=== PATIENT | female | born 1995 | race Caucasian/White ===

== ENCOUNTER 2016-12-08 23:03 | Emergency (ER) | payer OTHER ==
[2016-12-08 23:09] VITALS: BP 128/71; PULSE 78; TEMP 98.3; BMI 34.4
[2016-12-08 23:57] LABS: URINE APPEARANCE SLCLOUDY; URINE BILIRUBIN NEGATIVE (NEGATIVE); URINE BLOOD NEGATIVE (NEGATIVE); URINE COLOR LTYELLOW; URINE GLUCOSE (UA) NEGATIVE (NEGATIVE); URINE KETONE NEGATIVE (NEGATIVE); URINE LEUK ESTERASE NEGATIVE (NEGATIVE); URINE NITRITE NEGATIVE (NEGATIVE); URINE PROTEIN NEGATIVE (NEGATIVE); URINE UROBILINOGEN NEGATIVE mg/dL (0.2-1.0)
--- NOTE | 2016-12-09 00:04 | PDOC ---
History of Present Illness - General History Source: Patient, Old Records Exam Limitations: No Limitations - History of Present Illness Initial Comments: 12/09/16 00:23 Patient is a 21 year old female with no significant past medical history who presents with intermittent epigastric and abdominal pain for 2 weeks burning in sensation. 7/10 right now but previously a 10/10, occasionally radiating to the back. She does not report any modifying factors. She notes that her pain is association with food and accompanied by nausea but no vomiting, diarrhea, melena, hematochezia, or anorexia. She denies dysuria, frequency, urgency, hematuria, fever, chills. <Stefano Ceja - Last Filed: 12/09/16 00:23> <Vinnie Correa - Last Filed: 12/09/16 01:32> - General Chief Complaint: Pain Stated Complaint: STOMACH PAIN Time Seen by Provider: 12/08/16 23:46 Past History <Stefano Ceja - Last Filed: 12/09/16 00:23> - Past Medical History Asthma: Yes - Psycho/Social/Smoking Cessation Hx Anxiety: No Suicidal Ideation: No Smoking Status: No Smoking History: Never smoked Number of Cigarettes Smoked Daily: 0 <Vinnie Correa - Last Filed: 12/09/16 01:32> - Past Medical History Allergies/Adverse Reactions: Allergies Allergy/AdvReac Type Severity Reaction Status Date / Time No Known Allergies Allergy Verified 12/08/16 23:09 Home Medications: Ambulatory Orders Lactobacillus Rhamnosus GG [Culturelle] 1 each PO DAILY #7 capsule 03/28/13 Review of Systems - Review of Systems Able to Perform ROS?: Yes Comments:: 12/09/16 00:23 CONSTITUTIONAL: No fever, no chills, no fatigue EYES: No visual changes ENT: No ear pain, no sore throat CARDIOVASCULAR: No chest pain, no palpitations RESPIRATORY: No cough, no SOB GI: (+) abdominal pain, no nausea, no vomiting, no constipation, no diarrhea GENITOURINARY: No dysuria, no frequency, no hematuria MUSCULOSKELETAL: No back pain, no joint pain, no myalgias SKIN: No rash NEURO: No headache <Stefano Ceja - Last Filed: 12/09/16 00:23> *Physical Exam - Vital Signs Last Vital Signs Temp Pulse Resp BP Pulse Ox 98.3 F 78 18 128/71 99 12/08/16 23:07 12/08/16 23:07 12/08/16 23:07 12/08/16 23:07 12/08/16 23:07 - Physical Exam Comments: 12/09/16 00:23 CONSTITUTIONAL: Well-appearing; well-nourished; in no apparent distress HEAD: Normocephalic; atraumatic EYES: PERRL; EOM intact ENMT: External appears normal; normal oropharynx NECK: Supple; non-tender; no cervical lymphadenopathy CARD: Normal S1, S2; no murmurs, rubs, or gallops RESP: Normal chest excursion with respiration; breath sounds clear and equal bilaterally; no wheezes, rhonchi, or rales ABD: (+) Soft, non-distended; Epigastric and left upper quadrant tenderness. no palpable organomegaly, no palpable hernias EXT: Normal ROM in all four extremities; non-tender to palpation; distal pulses intact SKIN: Warm, dry, no rash NEURO: No focal neurological deficiencies. <Stefano Ceja - Last Filed: 12/09/16 00:23> - Vital Signs Last Vital Signs Temp Pulse Resp BP Pulse Ox 98.3 F 78 18 128/71 99 12/08/16 23:07 12/08/16 23:07 12/08/16 23:07 12/08/16 23:07 12/08/16 23:07 <Vinnie Correa - Last Filed: 12/09/16 01:32> ED Treatment Course - ADDITIONAL ORDERS Additional order review: Laboratory Results 12/08/16 23:44 Urine Color Ltyellow Urine Appearance Slcloudy Urine pH 7.0 Urine Protein Negative Urine Glucose (UA) Negative Urine Ketones Negative Urine Blood Negative Urine Nitrite Negative Urine Bilirubin Negative Urine Urobilinogen Negative Ur Leukocyte Esterase Negative Urine HCG, Qual Negative <Stefano Ceja - Last Filed: 12/09/16 00:23> - ADDITIONAL ORDERS Additional order review: Laboratory Results 12/08/16 23:44 Urine HCG, Qual Negative <Vinnie Correa - Last Filed: 12/09/16 01:32> Medical Decision Making - Medical Decision Making 12/09/16 01:30 Patient is a well-appearing 21-year-old female with history of the obesity who presents to the ER with signs and symptoms of gastroesophageal reflux. Serial abdominal exams reveal minimal subxiphoid discomfort to deep palpation without guarding rebound. Patient has received by mouth Zantac and Maalox with resolution of her symptoms. She is able to tolerate by mouth. Will be discharged with H2 blockers and GI follow-up. <Vinnie Correa - Last Filed: 12/09/16 01:32> *DC/Admit/Observation/Transfer - Attestations Scribe Attestion: 12/09/16 00:23 Documentation prepared by Stefano Ceja, acting as medical billing service for Vinnie Correa MD. <Stefano Ceja - Last Filed: 12/09/16 00:23> - Attestations Physician Attestion: 12/09/16 01:29 The documentation was prepared by the scribe under my direct supervision. I have reviewed the documentation which correctly represents the findings, medical decision-making and critical action taken by me. <Vinnie Correa - Last Filed: 12/09/16 01:32> Diagnosis at time of Disposition: Epigastric pain Gastroesophageal reflux disease Qualifiers: Esophagitis presence: esophagitis presence not specified Qualified Code(s): K21.9 - Gastro-esophageal reflux disease without esophagitis - Discharge Dispostion Disposition: HOME Condition at time of disposition: Stable - Referrals Referrals: Liberty Harrell MD [Primary Care Provider] - Rahul Ley MD [Staff Physician] - - Patient Instructions Printed Discharge Instructions: DI for Abdominal Pain-Adult, DI for Gastroesophageal Reflux Disease (GERD) Additional Instructions: Please take Zantac-150 mg twice daily for the next 7-10 days. You can take Maalox (a Full) 6-8 hours as needed. Follow-up with GI. Return immediately for severe pain, persistent vomiting.
[2016-12-09] MEDS ORDERED: RANITIDINE HCL 150 MG TABLET (FP) PO ONE (00:15)
[2016-12-09] MEDS ORDERED: MAG HYDROX/AL HYDROX/SIMETH 30 ML UNIT-DOSE CUP PO ONE (00:15)
[2016-12-09] MEDS ORDERED: RANITIDINE HCL 150 MG TABLET (FP) ONE ×2 (00:21→00:23)
[2016-12-09] MEDS ORDERED: MAG HYDROX/AL HYDROX/SIMETH 30 ML UNIT-DOSE CUP ONE (00:22)
[2016-12-09] MEDS ORDERED: traMADol HCL 50 MG TABLET PO ONE (00:37)
== END 2016-12-09 01:50 | disposition home or self-care (01) ==
LOC: JER 23:03
DX: K21.9 Gastro-esophageal reflux disease without esophagitis (principal)
CPT/HCPCS: 81003; 84703; 99282-25

== ENCOUNTER 2017-08-04 19:20 | Emergency (ER) | payer OTHER ==
[2017-08-04 19:24] VITALS: BP 125/81; PULSE 75; TEMP 98.2; BMI 33.1
--- NOTE | 2017-08-04 20:28 | PDOC ---
History of Present Illness - General Chief Complaint: Back Pain Stated Complaint: BACK PAIN Time Seen by Provider: 08/04/17 20:26 - History of Present Illness Initial Comments: 08/04/17 21:03 Patient is 22-year-old female with no past medical history who presents to emergency department today with 3 weeks of low back pain. Patient states that she noticed it 3 weeks ago however the pain got worse 3 days ago. She states that no positional make her comfortable. She tried Tylenol and Motrin with minimal relief. Denies bladder or bowel incontinence, weakness, gait changes, saddle anesthesia, frequency, urgency, hematuria. Past History - Past Medical History Allergies/Adverse Reactions: Allergies Allergy/AdvReac Type Severity Reaction Status Date / Time No Known Allergies Allergy Verified 08/04/17 19:22 Home Medications: Ambulatory Orders NK [No Known Home Medication] 08/04/17 Asthma: Yes COPD: No - Suicide/Smoking/Psychosocial Hx Smoking Status: No Smoking History: Never smoked Number of Cigarettes Smoked Daily: 0 Review of Systems - Review of Systems Able to Perform ROS?: Yes Comments:: 08/04/17 20:28 CONSTITUTIONAL: Absent: fever, chills, diaphoresis, generalized weakness, malaise, loss of appetite HEENT: Absent: rhinorrhea, nasal congestion, throat pain, throat swelling, difficulty swallowing, mouth swelling, ear pain, eye pain, visual Changes GENITOURINARY: Absent: dysuria, frequency, urgency, hesitancy, hematuria, flank pain, genital pain MUSCULOSKELETAL: Present: back pain Absent: myalgia, arthralgia, joint swelling SKIN: Absent: rash, itching, pallor NEUROLOGIC: Absent: headache, focal weakness or paresthesias, dizziness, unsteady gait, seizure, mental status changes, bladder or bowel incontinence PSYCHIATRIC: Absent: anxiety, depression, suicidal or homicidal ideation, hallucinations. Is the patient limited Montenegrin proficient: No *Physical Exam - Vital Signs Last Vital Signs Temp Pulse Resp BP Pulse Ox 98.2 F 75 18 125/81 100 08/04/17 19:22 08/04/17 19:22 08/04/17 19:22 08/04/17 19:22 08/04/17 19:22 - Physical Exam Comments: 08/04/17 20:28 GENERAL: Well developed, well nourished. Awake and alert. No acute distress. HEENT: Normocephalic, atraumatic. PERRLA, EOMI. No conjunctival pallor. Sclera are non- icteric. Moist mucous membranes. Oropharynx is clear. NECK: Supple. Full ROM. No JVD. Carotid pulses 2+ and symmetric, without bruits. No thyromegaly. No lymphadenopathy. CARDIOVASCULAR: Regular rate and rhythm. No murmurs, rubs, or gallops. Distal pulses are 2+ and symmetric. PULMONARY: No evidence of respiratory distress. Lungs clear to auscultation bilaterally. No wheezing, rales or rhonchi. ABDOMINAL: Soft. Non-tender. Non-distended. No rebound or guarding. No organomegaly. Normoactive bowel sounds. MUSCULOSKELETAL TTP of left lower back at the level of L5. Normal range of motion at all joints. No bony deformities or tenderness. No CVA tenderness. EXTREMITIES: No cyanosis. No clubbing. No edema. No calf tenderness. SKIN: Warm and dry. Normal capillary refill. No rashes. No jaundice. NEUROLOGICAL: Alert, awake, appropriate. Cranial nerves 2-12 intact. No deficits to light touch and temperature in face, upper extremities and lower extremities. No motor deficits in the in face, upper extremities and lower extremities. Normoreflexic in the upper and lower extremities. Normal speech. Toes are down- going bilaterally. Gait is normal without ataxia. PSYCHIATRIC: Cooperative. Good eye contact. Appropriate mood and affect. ED Treatment Course - ADDITIONAL ORDERS Additional order review: Laboratory Results 08/04/17 20:00 Urine HCG, Qual Negative Medical Decision Making - Medical Decision Making 08/04/17 21:30 Patient is a 22-year-old female no past medical history who presents with 3 days of worsening back pain. There is a palpable knot on exam. Most likely a muscle spasm at this time. We'll treat with Toradol and Flexeril. Exam and history revealed no red flags. We'll discharge home at this time. Return precautions given. Patient understands all discharge instructions and all questions were answered. *DC/Admit/Observation/Transfer Diagnosis at time of Disposition: Low back pain Qualifiers: Chronicity: acute Back pain laterality: bilateral Sciatica presence: without sciatica Qualified Code(s): M54.5 - Low back pain - Discharge Dispostion Disposition: HOME Condition at time of disposition: Stable Admit: No - Referrals Referrals: Din,Liberty, MD [Primary Care Provider] - Charlette Alvarado DO [Staff Physician] - Sera Sanderson MD [Staff Physician] - - Patient Instructions Printed Discharge Instructions: DI for Low Back Pain Additional Instructions: You have low back pain due to a muscle spasm. Please take ibuprofen 800 mg 3 times a day not to exceed 3000 mg a day. You were also prescribed Flexeril. Take the medication before you go to bed. Do not drive after taking this medication as it may make you sleepy. You may use warm compresses on your back to help with her symptoms. Please follow-up with your primary care doctor. Return to the emergency department if you have worsening back pain, bladder or bowel incontinence, numbness and tingling in her legs, changes in the way you walk, or any new or worsening symptoms. - Post Discharge Activity Forms/Work/School Notes: Back to School
[2017-08-04] MEDS ORDERED: KETOROLAC TROMETHAMINE 60 MG/2 ML VIAL IM ONE (20:59)
[2017-08-04] MEDS ORDERED: CYCLOBENZAPRINE HCL 10 MG TABLET (FP) PO ONE (20:59)
[2017-08-04] MEDS ORDERED: CYCLOBENZAPRINE HCL 10 MG TABLET (FP) ONE (21:04)
[2017-08-04] MEDS ORDERED: KETOROLAC TROMETHAMINE 60 MG/2 ML VIAL ONE (21:04)
== END 2017-08-04 21:09 | disposition home or self-care (01) ==
LOC: JERFT 19:20
PROC: 3E0233Z Introduction of Anti-inflammatory into Muscle, Percutaneous Approach (ICD-10-PCS; principal; 2017-08-04)
DX: M54.5 Low back pain (principal)
CPT/HCPCS: 84703; 99281-25

== ENCOUNTER 2017-12-31 19:59 | Emergency (ER) | payer OTHER ==
[2017-12-31 20:11] VITALS: BP 133/76; PULSE 90; TEMP 98.7; BMI 32.9
--- NOTE | 2017-12-31 20:30 | PDOC ---
History of Present Illness - General Chief Complaint: Pain Stated Complaint: ABD PAIN Time Seen by Provider: 12/31/17 20:30 History Source: Patient Exam Limitations: No Limitations Past History - Past Medical History Allergies/Adverse Reactions: Allergies Allergy/AdvReac Type Severity Reaction Status Date / Time No Known Allergies Allergy Verified 08/04/17 19:22 Home Medications: Ambulatory Orders NK [No Known Home Medication] 08/04/17 Asthma: Yes COPD: No - Suicide/Smoking/Psychosocial Hx Smoking Status: No Smoking History: Never smoked Number of Cigarettes Smoked Daily: 0 *Physical Exam - Vital Signs Last Vital Signs Temp Pulse Resp BP Pulse Ox 98.7 F 90 20 133/76 99 12/31/17 20:08 12/31/17 20:08 12/31/17 20:08 12/31/17 20:08 12/31/17 20:08 ED Treatment Course - LABORATORY CBC & Chemistry Diagram: 12/31/17 20:54 12/31/17 20:54 *DC/Admit/Observation/Transfer Diagnosis at time of Disposition: Abdominal pain Qualifiers: Abdominal location: unspecified location Qualified Code(s): R10.9 - Unspecified abdominal pain - Discharge Dispostion Disposition: HOME Decision to Admit order: No - Referrals - Patient Instructions Printed Discharge Instructions: DI for Abdominal Pain-Adult Additional Instructions: You have been diagnosed with abdominal pain. Please follow up with your primary medical doctor, Dr. Harrell within 1 day after discharge from the emergency department. If you pain worsens, persists, or you develop new concerning symptoms, please return to the emergency department immediately. - Post Discharge Activity
--- NOTE | 2017-12-31 20:35 | PDOC ---
Attending Attestation - HPI HPI: 12/31/17 21:44 The patient is a 22 year old female, with a significant PMH of asthma, migraines , gastritis, who presents to the emergency department with 2 days of right upper quadrant pain. The patient states the right upper quadrant pain has been progressively worsening over the past 3 hours prior to arrival. The patient states the RUQ pain is rated 10/10, radiates to the groin, worse with bowel movements, with no alleviating factors. The patient also states she has had 2 episodes of emesis within the past few hours with streaks of blood noted. The patient states she has taken Tylenol for the RUQ pain with minimal relief. The patient denies chest pain, shortness of breath, headache and dizziness. Denies fever, chills, diarrhea and constipation. Denies dysuria, frequency, urgency and hematuria. Allergies: NKA - Physicial Exam PE: 12/31/17 22:34 GENERAL: Awake, alert, and fully oriented, in no acute distress HEAD: No signs of trauma EYES: PERRLA, EOMI, sclera anicteric, conjunctiva clear ENT: Auricles normal inspection, hearing grossly normal, nares patent, oropharynx clear without exudates. Moist mucosa NECK: Normal ROM, supple, no lymphadenopathy, JVD, or masses LUNGS: Breath sounds equal, clear to auscultation bilaterally. No wheezes, and no crackles HEART: Regular rate and rhythm, normal S1 and S2, no murmurs, rubs or gallops ABDOMEN: (+) Right upper quadrant tenderness. No guarding, no rebound. Soft, normoactive bowel sounds. No masses EXTREMITIES: Normal range of motion, no edema. No clubbing or cyanosis. No cords, erythema, or tenderness NEUROLOGICAL: Cranial nerves II through XII grossly intact. Normal speech, normal gait SKIN: Warm, Dry, normal turgor, no rashes or lesions noted. <Christiano Jenkins - Last Filed: 12/31/17 22:34> - Resident Resident Name: Stevie Feliciano - ED Attending Attestation I have performed the following: I have examined & evaluated the patient, The case was reviewed & discussed with the resident, I agree w/resident's findings & plan - Medical Decision Making 12/31/17 21:52 Labs are normal. Pt will be treated with maalox; IVF and antiemetics were given 01/01/18 00:31 Labs normal, exam normal. Pt is gassy. Home with improved diet. <Hoa Betancourt - Last Filed: 01/01/18 00:32> Attestations - Attestations 12/31/17 21:45 Documentation prepared by Christiano Jenkins, acting as chief medical officer for Hoa Betancourt MD. <Christiano Jenkins - Last Filed: 12/31/17 22:34>
[2017-12-31] MEDS ORDERED: ACETAMINOPHEN 1000 MG/100 ML VIAL (NON FORMULARY) IVPB ONE (20:47)
[2017-12-31] MEDS ORDERED: ONDANSETRON 4 MG/2 ML VIAL IVPUSH ONE (20:47)
[2017-12-31] MEDS ORDERED: SODIUM CHLORIDE 1,000 ML IV STA (20:48)
[2017-12-31 21:05] LABS: BASO % 0.7 % (0-2.0); EOS % 2.6 % (0-4.5); HEMATOCRIT 36.2 % (32.4-45.2); LYMPH % 22.8 % (8-40); MCH 26.9 pg (25.7-33.7); MCHC 33.2 g/dl (32.0-36.0); MONO % 8.7 % (3.8-10.2); NEUT % 65.2 % (42.8-82.8); PLATELET COUNT 292 K/MM3 (134-434); RBC 4.46 M/mm3 (3.60-5.2); RDW 14.7 % (11.6-15.6); WHITE BLOOD COUNT 7.3 K/mm3 (4.0-10.0)
[2017-12-31] MEDS ORDERED: ONDANSETRON 4 MG/2 ML VIAL ONE (21:08)
[2017-12-31 21:37] LABS: ALK PHOS 73 U/L (45-117); ANION GAP 9 (8-16); BILIRUBIN,TOTAL 0.3 mg/dL (0.2-1.0); BLOOD UREA NITROGEN 10 mg/dL (7-18); CALCIUM 9.3 mg/dL (8.5-10.1); CHLORIDE 106 mmol/L (98-107); CO2 27 mmol/L (21-32); CREATININE 0.6 mg/dL (0.55-1.02); GLUCOSE,RANDOM 76 mg/dL (74-106); LIPASE 133 U/L (73-393); POTASSIUM 4.2 mmol/L (3.5-5.1); SGOT/AST 12 U/L (15-37); SGPT/ALT 26 U/L (12-78); SODIUM 142 mmol/L (136-145); TOT PROT 7.9 g/dl (6.4-8.2)
[2017-12-31 21:41] LABS: URINE APPEARANCE SLCLOUDY; URINE BILIRUBIN NEGATIVE (<2.0 mg/dL); URINE COLOR LTYELLOW; URINE GLUCOSE (UA) NEGATIVE (NEGATIVE); URINE KETONE NEGATIVE (NEGATIVE); URINE LEUK ESTERASE NEGATIVE (NEGATIVE); URINE NITRITE NEGATIVE (NEGATIVE); URINE PROTEIN NEGATIVE (NEGATIVE); URINE UROBILINOGEN NEGATIVE mg/dL (0.2-1.0)
[2017-12-31 21:43] LABS: HCG,QUALITATIVE URINE Negative
[2017-12-31] MEDS ORDERED: MAG HYDROX/AL HYDROX/SIMETH 30 ML UNIT-DOSE CUP PO ONE (21:49)
[2017-12-31] MEDS ORDERED: MAG HYDROX/AL HYDROX/SIMETH 30 ML UNIT-DOSE CUP ONE (21:54)
== END 2017-12-31 22:02 | disposition home or self-care (01) ==
LOC: JER 19:59
PROC: 3E033NZ Introduction of Analgesics, Hypnotics, Sedatives into Peripheral Vein, Percutaneous Approach (ICD-10-PCS; principal; 2017-12-31)
PROC: 3E033GC Introduction of Other Therapeutic Substance into Peripheral Vein, Percutaneous Approach (ICD-10-PCS; 2017-12-31)
PROC: 3E0337Z Introduction of Electrolytic and Water Balance Substance into Peripheral Vein, Percutaneous Approach (ICD-10-PCS; 2017-12-31)
DX: R10.9 Unspecified abdominal pain (principal)
CPT/HCPCS: 36415; 80053; 81003; 83690; 84703; 85025; 87086; 99283-25; J0131; J7030

== ENCOUNTER 2018-02-28 22:58 | Emergency (ER) | payer OTHER ==
[2018-02-28 23:08] VITALS: BP 119/77; PULSE 87; TEMP 99; BMI 34.2
--- NOTE | 2018-03-01 00:06 | PDOC ---
History of Present Illness - General Chief Complaint: Pain Stated Complaint: Migraine Headache Time Seen by Provider: 03/01/18 00:06 History Source: Patient - History of Present Illness Initial Comments: 03/01/18 01:39 22-year-old female with history of migraines complains of right-sided headache for 3 days with photophobia and phonophobia. Denies weakness, nausea, vomiting, diarrhea, abdominal pain, urinary symptoms, weakness. Patient has a history of migraines currently not on meds. Past History - Past Medical History Allergies/Adverse Reactions: Allergies Allergy/AdvReac Type Severity Reaction Status Date / Time No Known Allergies Allergy Verified 02/28/18 23:05 Home Medications: Ambulatory Orders Acetaminophen/Caffeine/Butalb [Fioricet -] 1 tab PO Q6H PRN #14 tablet MDD 4 08/14 Asthma: Yes COPD: No - Reproductive History Therapeutic (s) & number: No - Immunization History Immunization Up to Date: Yes - Suicide/Smoking/Psychosocial Hx Smoking Status: No Smoking History: Never smoked Have you smoked in the past 12 months: No Number of Cigarettes Smoked Daily: 0 Information on smoking cessation initiated: No Hx Alcohol Use: No Drug/Substance Use Hx: No Substance Use Type: None Review of Systems - Review of Systems Able to Perform ROS?: Yes Is the patient limited Omani proficient: No Constitutional: No: Symptoms Reported, See HPI, Chills, Diaphoresis, Fever, Loss of Appetite, Malaise, Night Sweats, Weakness, Weight Stable, Unintentional Wgt. Loss, Unexplained wgt Loss, Other HEENTM: Yes: Other (photophobia, phonophobia) Neurological: Yes: Headache. No: Symptoms reported, See HPI, Numbness, Paresthesia, Pre-Existing Deficit, Seizure, Tingling, Tremors, Weakness, Unsteady Gait, Ataxia, Dizziness, Other *Physical Exam - Vital Signs Last Vital Signs Temp Pulse Resp BP Pulse Ox 99.0 F 87 18 119/77 98 02/28/18 23:06 02/28/18 23:06 02/28/18 23:06 02/28/18 23:06 02/28/18 23:06 - Physical Exam General Appearance: Yes: Appropriately Dressed HEENT: positive: Normal ENT Inspection Respiratory/Chest: positive: Lungs Clear, Normal Breath Sounds Cardiovascular: positive: Regular Rhythm, Regular Rate Gastrointestinal/Abdominal: positive: Normal Bowel Sounds, Soft Extremity: positive: Normal Capillary Refill, Normal Inspection, Normal Range of Motion Integumentary: positive: Normal Color, Dry, Warm Neurologic: positive: instructor pilot II-XII NML intact, Fully Oriented, Alert, Normal Mood/ Affect ED Treatment Course - LABORATORY CBC & Chemistry Diagram: 03/01/18 01:00 03/01/18 01:00 Medical Decision Making - Medical Decision Making A: migraine P: IVF reglan Benadryl 03/01/18 02:32 feeling better. will d/c home *DC/Admit/Observation/Transfer Diagnosis at time of Disposition: Migraine Qualifiers: Migraine type: with aura Status migrainosus presence: without status migrainosus Intractability: intractable Qualified Code(s): G43.119 - Migraine with aura, intractable, without status migrainosus - Discharge Dispostion Disposition: HOME Condition at time of disposition: Fair - Prescriptions Prescriptions: Acetaminophen/Caffeine/Butalb [Fioricet -] 1 tab PO Q6H PRN #14 tablet MDD 4 PRN Reason: Moderate Pain - Referrals Referrals: Liberty Harrell MD [Primary Care Provider] - 24 hours - Patient Instructions Printed Discharge Instructions: Migraine -- Adult Additional Instructions: drink plenty of fluids. take fiorecet every 6 hours as needed for headache. Additional Instructions: * Please call your personal physician to report your Emergency Department visit and to report your progress, if any. * If there is no improvement in symptoms in 2 days call your physician. * Return to the Emergency Department for any worsening symptoms. - Post Discharge Activity Forms/Work/School Notes: Back to Work
[2018-03-01] MEDS ORDERED: SODIUM CHLORIDE 1,000 ML IV STA (00:09)
[2018-03-01] MEDS ORDERED: METOCLOPRAMIDE HCL INJECTION 10 MG/2 ML VIAL IVPB ONE (00:21)
[2018-03-01] MEDS ORDERED: METOCLOPRAMIDE HCL INJECTION 10 MG/2 ML VIAL ONE (01:04)
[2018-03-01 01:22] LABS: BASO % 0.6 % (0-2.0); EOS % 0.9 % (0-4.5); HEMATOCRIT 39.7 % (32.4-45.2); HEMOGLOBIN 13.1 GM/dL (10.7-15.3); MCHC 32.9 g/dl (32.0-36.0); MEAN CELL VOLUME 81.9 fl (80-96); MEAN PLT VOLUME 9.7 fl (7.5-11.1); MONO % 7.3 % (3.8-10.2); NEUT % 60.2 % (42.8-82.8); PLATELET COUNT 298 K/MM3 (134-434); RBC 4.84 M/mm3 (3.60-5.2); RDW 16.1 % (11.6-15.6); WHITE BLOOD COUNT 8.1 K/mm3 (4.0-10.0)
[2018-03-01 01:24] LABS: URINE APPEARANCE CLEAR; URINE BILIRUBIN NEGATIVE (<2.0 mg/dL); URINE COLOR LTYELLOW; URINE GLUCOSE (UA) NEGATIVE (NEGATIVE); URINE KETONE NEGATIVE (NEGATIVE); URINE LEUK ESTERASE NEGATIVE (NEGATIVE); URINE NITRITE NEGATIVE (NEGATIVE); URINE PROTEIN NEGATIVE (NEGATIVE); URINE UROBILINOGEN NEGATIVE mg/dL (0.2-1.0)
[2018-03-01 01:40] LABS: ALBUMIN 4.2 g/dl (3.4-5.0); ALK PHOS 79 U/L (45-117); ANION GAP 5 MMOL/L (8-16); BILIRUBIN,TOTAL 0.2 mg/dL (0.2-1); BLOOD UREA NITROGEN 12 mg/dL (7-18); CALCIUM 9.5 mg/dL (8.5-10.1); CHLORIDE 105 mmol/L (98-107); CO2 29 mmol/L (21-32); GLUCOSE,RANDOM 81 mg/dL (74-106); POTASSIUM 4.8 mmol/L (3.5-5.1); SGOT/AST 15 U/L (15-37); SGPT/ALT 22 U/L (13-61); SODIUM 139 mmol/L (136-145); TOT PROT 8.7 g/dl (6.4-8.2)
[2018-03-01] MEDS ORDERED: KETOROLAC TROMETHAMINE 30 MG/1 ML VIAL IVPUSH ONE (01:43)
[2018-03-01] MEDS ORDERED: KETOROLAC TROMETHAMINE 30 MG/1 ML VIAL ONE (02:20)
== END 2018-03-01 03:00 | disposition home or self-care (01) ==
LOC: JER 22:58
PROC: 3E033GC Introduction of Other Therapeutic Substance into Peripheral Vein, Percutaneous Approach (ICD-10-PCS; principal; 2018-02-28)
PROC: 3E033GC Introduction of Other Therapeutic Substance into Peripheral Vein, Percutaneous Approach (ICD-10-PCS; 2018-02-28)
PROC: 3E0333Z Introduction of Anti-inflammatory into Peripheral Vein, Percutaneous Approach (ICD-10-PCS; 2018-02-28)
DX: G43.119 Migraine with aura, intractable, without status migrainosus (principal)
CPT/HCPCS: 36415; 80053; 81003; 84703; 85025; 96374; 96375; 99282-25; J7030

== ENCOUNTER 2018-09-14 13:00 | Emergency (ER) | payer OTHER ==
[2018-09-14 13:16] VITALS: BP 114/68; PULSE 79; TEMP 98.6; BMI 34.4
--- NOTE | 2018-09-14 13:23 | PDOC ---
History of Present Illness - General Chief Complaint: Back Pain Stated Complaint: LOWER BACK PAIN Time Seen by Provider: 09/14/18 13:17 History Source: Patient - History of Present Illness Initial Comments: 09/14/18 14:20 23 YEAR OLD FEMALE WITH LOWER BACK PAIN X 1 DAY. REPORTS TAKING IBUPROFEN yesterday with minimal pain relief. denies injury or trauma or lifting reported. no urinary symptoms. denies NVD, abdominal pain, no flank pain no pmhx Past History - Past Medical History Allergies/Adverse Reactions: Allergies Allergy/AdvReac Type Severity Reaction Status Date / Time No Known Allergies Allergy Verified 02/28/18 23:05 Home Medications: Ambulatory Orders Acetaminophen/Caffeine/Butalb [Fioricet -] 1 tab PO Q6H PRN #14 tablet MDD 4 08/14 Cyclobenzaprine HCl [Flexeril 10 mg] 10 mg PO TID PRN #14 tablet 09/14/18 Asthma: Yes COPD: No - Reproductive History Therapeutic (s) & number: No - Immunization History Immunization Up to Date: Yes - Suicide/Smoking/Psychosocial Hx Smoking Status: No Smoking History: Never smoked Have you smoked in the past 12 months: No Number of Cigarettes Smoked Daily: 0 Information on smoking cessation initiated: No Hx Alcohol Use: No Drug/Substance Use Hx: No Substance Use Type: None Review of Systems - Review of Systems Able to Perform ROS?: Yes Is the patient limited Syrian proficient: No Constitutional: No: Symptoms Reported, See HPI, Chills, Diaphoresis, Fever, Loss of Appetite, Malaise, Night Sweats, Weakness, Weight Stable, Unintentional Wgt. Loss, Unexplained wgt Loss, Other : No: Symptoms Reported, See HPI, Burning, Dysuria, Discharge, Frequency, Flank Pain, Hematuria, Incontinence, Pain, Urgency, Testicular Mass, Testicular Swelling, Lesions, Testicular Pain, Other Musculoskeletal: Yes: Back Pain. No: Symptoms Reported, See HPI, Gout, Joint Pain, Joint Swelling, Muscle Pain, Muscle Weakness, Neck Pain, Joint Stiffness, Other *Physical Exam - Vital Signs Last Vital Signs Temp Pulse Resp BP Pulse Ox 98.6 F 79 18 114/68 98 09/14/18 13:14 09/14/18 13:14 09/14/18 13:14 09/14/18 13:14 09/14/18 13:14 - Physical Exam General Appearance: Yes: Appropriately Dressed Gastrointestinal/Abdominal: positive: Normal Bowel Sounds, Soft. negative: Tender Musculoskeletal: positive: Normal Inspection, Muscle Spasm (lumbar area). negative: CVA Tenderness Extremity: positive: Normal Capillary Refill, Normal Inspection Integumentary: positive: Normal Color, Dry, Warm Neurologic: positive: Fully Oriented, Alert Medical Decision Making - Medical Decision Making 09/14/18 14:22 A: back pain P: UA: negative neg toradol flexeril pcp follow up *DC/Admit/Observation/Transfer Diagnosis at time of Disposition: Lower back pain Qualifiers: Chronicity: acute Back pain laterality: bilateral Sciatica presence: without sciatica Qualified Code(s): M54.5 - Low back pain - Discharge Dispostion Disposition: HOME Condition at time of disposition: Stable - Prescriptions Prescriptions: Cyclobenzaprine HCl [Flexeril 10 mg] 10 mg PO TID PRN #14 tablet PRN Reason: Muscle Spasms - Referrals Referrals: Liberty Harrell MD [Primary Care Provider] - Call tomorrow - Patient Instructions Printed Discharge Instructions: Low Back Pain Additional Instructions: you may do light stretches take ibuprofen every 6 hours as needed for pain take Flexeril as prescribed. follow up with your doctor as soon as possible, - Post Discharge Activity Forms/Work/School Notes: Back to Work
[2018-09-14 13:45] LABS: HCG,QUALITATIVE URINE Negative; URINE APPEARANCE CLEAR; URINE BACTERIA 18.3 /hpf (NEGATIVE); URINE BILIRUBIN NEGATIVE (NEGATIVE); URINE CASTS 5 /lpf (0-8); URINE COLOR YELLOW; URINE GLUCOSE (UA) NEGATIVE (NEGATIVE); URINE KETONE NEGATIVE (NEGATIVE); URINE LEUK ESTERASE TRACE (NEGATIVE); URINE NITRITE NEGATIVE (NEGATIVE); URINE PROTEIN NEGATIVE (NEGATIVE); URINE UROBILINOGEN 0.2 mg/dL (0.2-1.0); URINE WBC 4 /hpf (0-5)
[2018-09-14] MEDS ORDERED: KETOROLAC TROMETHAMINE 30 MG/1 ML VIAL IM ONE (13:49)
[2018-09-14 14:10] LABS: URINE RBC 17.3 /hpf (0-4)
[2018-09-14] MEDS ORDERED: KETOROLAC TROMETHAMINE 30 MG/1 ML VIAL ONE (14:16)
== END 2018-09-14 14:51 | disposition home or self-care (01) ==
LOC: JERFT 13:00
PROC: 3E0233Z Introduction of Anti-inflammatory into Muscle, Percutaneous Approach (ICD-10-PCS; principal; 2018-09-14)
DX: M54.5 Low back pain (principal)
CPT/HCPCS: 81003; 84703; 99281-25

== ENCOUNTER 2019-01-22 08:42 | Inpatient (IN) | payer OTHER ==
[2019-01-16 15:45] VITALS: BMI 36.0
[~2019-01-22 08:42] MED LIST: BUPIVACAINE HCL/PF 0.25% (2.5MG/ML) 10 ML VIAL IJ ONE
[2019-01-22] MEDS ORDERED: DEXAMETHASONE SOD PHOSPHATE 4 MG/1 ML VIAL ONE (09:22)
[2019-01-22] MEDS ORDERED: ONDANSETRON 4 MG/2 ML VIAL ONE (09:22)
[2019-01-22] MEDS ORDERED: LIDOCAINE HCL/PF 2% SDV 5ML VIAL ONE (09:22)
[2019-01-22] MEDS ORDERED: ROCURONIUM BROMIDE 50 MG/5 ML SYRINGE ONE (09:23)
[2019-01-22] MEDS ORDERED: PROPOFOL 20 ML ONE (09:23)
[2019-01-22] MEDS ORDERED: BUPIVACAINE HCL/PF 0.5% (5 MG/ML) 30 ML VIAL IJ ONE (09:29)
[2019-01-22] MEDS ORDERED: MIDAZOLAM HCL 2 MG/2 ML SINGLE DOSE VIAL ONE (09:29)
[2019-01-22] MEDS ORDERED: DEXAMETHASONE SOD PHOSPHATE/PF 10 MG/ML SDV ONE (09:29)
--- NOTE | 2019-01-22 10:17 | HP ---
Admitting History and Physical - Admission Chief Complaint: Morbid obesity History Source: Patient Limitations to Obtaining History: No Limitations - Past Medical History ...LMP: 01/22/19 ...: No - Past Surgical History Past Surgical History: Yes: None - Smoking History Smoking history: Never smoked Have you smoked in the past 12 months: No Aproximately how many cigarettes per day: 0 - Alcohol/Substance Use Hx Alcohol Use: No History of Substance Use: reports: None - Social History ADL: Independent Home Medications - Allergies Allergies/Adverse Reactions: Allergies Allergy/AdvReac Type Severity Reaction Status Date / Time No Known Allergies Allergy Verified 01/22/19 09:16 - Home Medications Home Medications: Ambulatory Orders Docusate Sodium [Colace -] 100 mg PO TID #90 capsule 01/22/19 Famotidine [Pepcid] 20 mg PO BID #60 tablet 01/22/19 Ondansetron [Zofran -] 8 mg PO TID #30 tablet 01/22/19 Oxycodone HCl/Acetaminophen [Percocet 5-325 mg Tablet] 1 - 2 tab PO Q6H #28 tab MDD 4 01/22/19 Family Disease History - Family Disease History Family History: Unremarkable Review of Systems - Review of Systems Constitutional: denies: Chills, Fever Neck: reports: No Symptoms Cardiovascular: reports: No Symptoms Respiratory: reports: No Symptoms Gastrointestinal: reports: No Symptoms Neurological: reports: No Symptoms Pain Intensity: 0 Physical Examination Vital Signs: Vital Signs Temperature 98.9 F 01/22/19 09:05 Pulse Rate 84 01/22/19 09:05 Respiratory Rate 20 01/22/19 09:05 Blood Pressure 125/74 01/22/19 09:05 O2 Sat by Pulse Oximetry (%) Constitutional: Yes: Calm, Obese Neck: Yes: WNL Cardiovascular: Yes: Regular Rate and Rhythm Respiratory: Yes: CTA Bilaterally Gastrointestinal: Yes: Soft, Abdomen, Obese. No: Tenderness Neurological: Yes: Alert, Oriented Problem List - Problems (1) Morbid obesity due to excess calories Code(s): E66.01 - MORBID (SEVERE) OBESITY DUE TO EXCESS CALORIES (2) BMI 36.0-36.9,adult Code(s): Z68.36 - BODY MASS INDEX (BMI) 36.0-36.9, ADULT (3) Obstructive sleep apnea Code(s): G47.33 - OBSTRUCTIVE SLEEP APNEA (ADULT) (PEDIATRIC) Assessment/Plan Laparoscopic possible open vertical sleeve gastrectomy possible liver biopsy possible endoscopy
[2019-01-22] MEDS ORDERED: BUPIVACAINE HCL/PF 2.5 MG/ML - 30 ML VIAL IJ ONE (10:51)
[2019-01-22] MEDS ORDERED: ceFAZolin SODIUM 1 GM VIAL IVPB ONE (11:08)
[2019-01-22] MEDS ORDERED: HYDROmorphone HCL/PF 1 MG/ML AMP ONE ×2 (11:28)
[2019-01-22] MEDS ORDERED: BUPIVACAINE HCL/PF 0.25% (2.5MG/ML) 10 ML VIAL IJ ONE (12:10)
[2019-01-22] MEDS ORDERED: NEOSTIGMINE METHYLSULFATE 0.5 MG/ML - 10 ML MDV ONE (12:15)
[2019-01-22] MEDS ORDERED: GLYCOPYRROLATE 0.2 MG/1 ML VIAL ONE (12:15)
[2019-01-22] MEDS ORDERED: FAMOTIDINE 20 MG/50 ML IVPB 20 MG/50 ML MG IVPB ONE (12:18)
[2019-01-22] MEDS ORDERED: ACETAMINOPHEN INJECTION 100 ML IVPB ONE (12:18)
[2019-01-22] MEDS ORDERED: METOCLOPRAMIDE HCL INJECTION 10 MG/2 ML VIAL ONE (12:18)
[2019-01-22] MEDS ORDERED: HYDROmorphone HCL CARPU-JECT 1 MG/1 ML DISP.SYRIN IVPB PRN (12:21)
--- NOTE | 2019-01-22 12:27 | OP ---
Operative Note - Note: Operative Date: 01/22/19 Pre-Operative Diagnosis: Morbid obesity. BMI 36. Obstructive sleep apnea Operation: Laparoscopic vertical sleeve gastrectomy. Laparoscopic wedge liver biopsy. Laparoscopic oversewing of bleeding staple line Post-Operative Diagnosis: Same as Pre-op (as well as hepatomegaly and oozing from the staple line) Surgeon: Hector Madison Reexaminer: Trace Ceja Anesthesia: General Specimens Removed: Greater curvature of the stomach. Liver biopsy Estimated Blood Loss (mls): 30 Drains & Tubes with Location: 36 Fr Bougie Operative Report Dictated: Yes
[2019-01-22] MEDS ORDERED: SODIUM CHLORIDE 1,000 ML IV SCH (12:30)
[2019-01-22] MEDS: METOCLOPRAMIDE HCL INJECTION 10 MG/2 ML VIAL IVPUSH SCH ×3 (12:50→23:40)
[2019-01-22] MEDS ORDERED: FAMOTIDINE 20 MG PREMIXED IVPB IVPB ONE (12:50)
[2019-01-22] MEDS: ONDANSETRON 4 MG/2 ML VIAL IVPUSH SCH ×3 (12:50→21:33)
[2019-01-22 13:00] LABS: HEMATOCRIT 34.2 % (32.4-45.2); HEMOGLOBIN 11.4 GM/dl (10.7-15.3); MCH 27.4 pg (25.7-33.7); MCHC 33.2 g/dl (32.0-36.0); MEAN CELL VOLUME 82.5 fl (80-96); MEAN PLT VOLUME 9.3 fl (7.5-11.1); PLATELET COUNT 365 K/MM3 (134-434); RBC 4.15 M/mm3 (3.60-5.2); RDW 15.2 % (11.6-15.6); WHITE BLOOD COUNT 11.2 K/mm3 (4.0-10.8)
[2019-01-22] MEDS: ACETAMINOPHEN 1000 MG/100 ML VIAL (NON FORMULARY) IVPB SCH ×2 (13:00→21:30)
[2019-01-22] MEDS ORDERED: LACTATED RINGERS SOLUTION 1,000 ML IV SCH (13:30)
[2019-01-22 13:38] LABS: BILIRUBIN,TOTAL 0.6 mg/dl (0.2-1); CALCIUM 8.9 mg/dl (8.5-10); CREATININE 0.6 mg/dl (0.55-1.3); POTASSIUM 3.6 mmol/L (3.5-5.1); TOT PROT 7.6 g/dl (6.4-8.2)
--- NOTE | 2019-01-22 15:57 | SPEC ---
DATE OF OPERATION: 01/22/2019 SURGEON: Tiffanie Madison MD MACHINE SAND MIXER: Trace Ceja MD PLACE OF SERVICE: [facility], [address] [place] [address] PREOPERATIVE DIAGNOSES: 1. Morbid obesity. 2. Body mass index of 36. 3. Obstructive sleep apnea. POSTOPERATIVE DIAGNOSES: 1. Morbid obesity. 2. Body mass index of 36. 3. Obstructive sleep apnea. 4. Hepatomegaly and oozing from the gastric staple line. PROCEDURE: 1. Diagnostic laparoscopy. 2. Laparoscopic vertical sleeve gastrectomy. 3. Laparoscopic wedge liver biopsy. 4. Laparoscopic oversewing of gastric staple line. SPECIMEN: 1. Greater curvature of the stomach. 2. Liver biopsy. ESTIMATED BLOOD LOSS: 30 mL. DRAINS: None. ANESTHESIA: GET. BOUGIE SIZE: 36 Micronesian. REASON FOR PROCEDURE: This is a 23-year-old female who presents for weight loss options. After describing the different options, she decided to proceed with a laparoscopic, possible open vertical sleeve gastrectomy, possible liver biopsy, upper endoscopy. RISKS AND BENEFITS: After describing the different options for weight loss management, the patient decided to proceed with a laparoscopic, possible open vertical sleeve gastrectomy. The patient was seen by the respective subspecialties and cleared for surgery. The risks and benefits of the procedure were explained. These included bleeding, infection, hernia, OH, DVT, PE, injury to surrounding structures including the liver, colon, bowel, spleen, esophagus, vessel injury, nerve injury, weight regain, gastric leak, staple line leak, sleeve leak, obstruction, vitamin deficiency, hair loss and as some of the possible complications. The patient understood and signed informed consent. DESCRIPTION OF PROCEDURE: The patient was placed supine on the operating room table. The patient underwent general endotracheal intubation. The arms were brought out at 90 degrees and secured. A footboard was placed and the legs were secured laterally with padding. The abdomen was prepped and draped in the usual sterile fashion. A timeout was performed. An incision was made in the left upper quadrant and a Veress needle inserted. Pneumoperitoneum was established. Subsequently, the Veress needle was removed and a 5-mm trocar was placed under direct visualization with the laparoscope. The laparoscopic camera was then inserted and inspection of the abdominal cavity was performed. An incision was then made in the supraumbilical area and a 15-mm trocar was placed under direct visualization. A 5-mm trocar was then placed in the right upper quadrant and a 5-mm trocar was placed below the left subcostal margin. A stab wound was made in the subxiphoid area and a Robyn clamp inserted and removed to dilate the tract. A Zac liver retractor was inserted. The post was secured at the bedside by the nursing staff. The patient was placed in steep reverse Trendelenburg position and the Zac liver retractor was used to secure the liver towards the anterior abdominal wall. The pylorus was identified and 6 cm proximal to it, the lesser sac was entered using the LigaSure device. All lateral attachments to the greater curvature of the stomach, including the short gastric vessels, were ligated using the LigaSure device toward the gastrosplenic and gastrophrenic ligaments. Once this was done in its entirety, it was confirmed that all tubes within the nasal or oropharyngeal cavity, including a temperature probe were removed by Anesthesia. The bougie was then inserted by Anesthesia. Transection of the stomach was then begun staying adjacent to the bougie but away from the angularis. Transection of the stomach was performed near the portion of the stomach where the lesser sac was entered. Two laparoscopic Endo-LILA black ketty were used at this location. Laparoscopic Endo LILA purple staple loads were then used for the remainder of the transection until the greater curvature of the stomach was fully transected. This was done staying close to the bougie. Care was taken to stay away from the angle of His cephalad. The staple line was then inspected. Hemostasis was identified. A leak test was then performed. It was clamped distally to the staple line. Irrigation solution was placed in the left upper quadrant and air was insufflated by Anesthesia into the sleeve. No leaks were identified. No obstruction was identified. This was done through the entirety of the staple line. The stomach was suctioned and the bougie removed fully intact under direct visualization. At this point, the irrigation solution was suctioned and again, hemostasis was noted. A wedge liver biopsy was then performed. The left lobe of the liver was identified. A portion of the edge of the left lobe of the liver was grasped. Using electrocautery, a wedge of the left liver was excised. The specimen was removed and sent off the field. Hemostasis of the wedge liver biopsy site was attained and noted using electrocautery. The 15-mm supraumbilical trocar was then removed and the greater curvature specimen removed from the site using a sponge stick hobbs. A Devon-Elin device was then used to close the fascia with a 0 Vicryl suture at the site. Again, hemostasis was noted. The Zac liver retractor was then removed under direct visualization. Pneumoperitoneum was desufflated. Hemostasis was noted at all incision sites and Marcaine was injected at all incision sites. A 3-0 Vicryl suture was used to close the deep subcutaneous tissue at the 15-mm incision site. All incision sites were closed using 4-0 Biosyn. Sterile dressings were applied. The patient tolerated the procedure well and was transferred to the recovery room in stable condition. ADDENDUM: The gastric staple line needed to be oversewed because of oozing. Using the Endo Stitch and a 2-0 Ethibond suture, the distal third of the staple line was oversewed. Once completed, hemostasis was noted. The patient tolerated the procedure well, transferred to recovery room in stable condition. TIFFANIE MADISON M.D. [id number]
--- NOTE | 2019-01-22 20:31 | CONSULT ---
Consult Consult Specialty:: IM Reason for Consultation:: post-op medical management - History of Present Illness Chief Complaint: abdominal discomfort. denies chest pain, palpitations, nausea , vomiting, diarrhea - History Source History Provided By: Patient - Past Medical History ...LMP: 01/22/19 ...: No - Past Surgical History Past Surgical History: Yes: None - Alcohol/Substance Use Hx Alcohol Use: No History of Substance Use: reports: None - Smoking History Smoking history: Never smoked Have you smoked in the past 12 months: No Aproximately how many cigarettes per day: 0 - Social History ADL: Independent Home Medications - Allergies Allergies/Adverse Reactions: Allergies Allergy/AdvReac Type Severity Reaction Status Date / Time No Known Allergies Allergy Verified 01/22/19 09:16 - Home Medications Home Medications: Ambulatory Orders Docusate Sodium [Colace -] 100 mg PO TID #90 capsule 01/22/19 Famotidine [Pepcid] 20 mg PO BID #60 tablet 01/22/19 Ondansetron [Zofran -] 8 mg PO TID #30 tablet 01/22/19 Oxycodone HCl/Acetaminophen [Percocet 5-325 mg Tablet] 1 - 2 tab PO Q6H #28 tab MDD 4 01/22/19 Family Disease History - Family Disease History Family History: Unremarkable Review of Systems - Review of Systems Constitutional: reports: No Symptoms Eyes: reports: No Symptoms HENT: reports: No Symptoms Neck: reports: No Symptoms Cardiovascular: reports: No Symptoms Respiratory: reports: No Symptoms Gastrointestinal: reports: Bloating Genitourinary: reports: No Symptoms Musculoskeletal: reports: No Symptoms Integumentary: reports: No Symptoms Neurological: reports: No Symptoms Endocrine: reports: No Symptoms Hematology/Lymphatic: reports: No Symptoms Psychiatric: reports: No Symptoms Pain Intensity: 5 Physical Exam Vital Signs: Vital Signs Temperature 97.4 F L 01/22/19 19:00 Pulse Rate 86 01/22/19 19:00 Respiratory Rate 01/22/19 19:00 Blood Pressure 122/66 01/22/19 19:00 O2 Sat by Pulse Oximetry (%) 97 01/22/19 19:00 Constitutional: Yes: Well Nourished, No Distress, Obese Eyes: Yes: WNL HENT: Yes: WNL Neck: Yes: WNL Cardiovascular: Yes: WNL Respiratory: Yes: WNL Gastrointestinal: Yes: Abdomen, Obese ...Rectal Exam: Yes: Deferred Renal/: Yes: WNL Musculoskeletal: Yes: WNL Extremities: Yes: WNL Edema: No Peripheral Pulses WNL: Yes Integumentary: Yes: WNL Neurological: Yes: WNL ...Motor Strength: WNL Psychiatric: Yes: WNL Labs: CBC, BMP 01/22/19 12:45 01/22/19 12:45 Assessment/Plan 23 yo female with morbid obesity, DAISY S/P laparoscopic vertical sleeve gastrectomy. Laparoscopic wedge liver biopsy. Laparoscopic oversewing of bleeding staple line POD #0. cont pain management. incentive spirometry. -GI, DVT prophylaxis. -cont reglan for nausea -for UGI series tomorrow. -blood work in AM -DC home tomorrow if X-ray is WNL and cleared by surgery.
[2019-01-22] MEDS: FAMOTIDINE 20 MG/50 ML IVPB 20 MG/50 ML MG IVPB SCH (21:33)
[2019-01-22] MEDS: ENOXAPARIN NA (PORCINE) 40 MG/0.4 ML DISP.SYRIN SQ SCH (21:38)
[2019-01-23] MEDS: ONDANSETRON 4 MG/2 ML VIAL IVPUSH SCH ×4 (01:22→13:00)
[2019-01-23] MEDS: ACETAMINOPHEN 1000 MG/100 ML VIAL (NON FORMULARY) IVPB SCH ×2 (05:37→05:55)
[2019-01-23] MEDS: METOCLOPRAMIDE HCL INJECTION 10 MG/2 ML VIAL IVPUSH SCH ×2 (05:37→14:03)
[2019-01-23 06:26] VITALS: TEMP 98.1
[2019-01-23 07:58] LABS: HEMATOCRIT 29.1 % (32.4-45.2); HEMOGLOBIN 9.7 GM/dl (10.7-15.3); MCHC 33.2 g/dl (32.0-36.0); MEAN CELL VOLUME 81.3 fl (80-96); MEAN PLT VOLUME 9.5 fl (7.5-11.1); PLATELET COUNT 295 K/MM3 (134-434); RBC 3.58 M/mm3 (3.60-5.2); WHITE BLOOD COUNT 11.1 K/mm3 (4.0-10.8)
[2019-01-23 08:13] LABS: ALBUMIN 3.4 g/dl (3.4-5.0); BILIRUBIN,TOTAL 0.6 mg/dl (0.2-1); CALCIUM 8.7 mg/dl (8.5-10); CREATININE 0.5 mg/dl (0.55-1.3); POTASSIUM 3.8 mmol/L (3.5-5.1); TOT PROT 6.6 g/dl (6.4-8.2)
--- NOTE | 2019-01-23 08:36 | PN ---
Progress Note (short form) - Note Progress Note: ANESTHESIA POSTOP 23 YO FEMALE POD#1 S/P GASTRIC SLEEVE, GETA, PNB Patient resting in bed. Pain adequately controlled VSS, Afebrile Continue current care. Encouraged IS and ambulation as directed. No anesthetic complications
--- NOTE | 2019-01-23 09:10 | PN ---
Progress Note (short form) - Note Progress Note: POD 1 No acute events reported Vital Signs Period Temp Pulse Resp BP Sys/Goldberg Pulse Ox Last 24 Hr 97.4 F-98.8 F 73-101 13-24 118-145/61-84 97-100 CBC,CMP WBC 11.1 K/mm3 (4.0-10.8) H 01/23/19 07:16 RBC 3.58 M/mm3 (3.60-5.2) L 01/23/19 07:16 Hgb 9.7 GM/dl (10.7-15.3) L 01/23/19 07:16 Hct 29.1 % (32.4-45.2) L 01/23/19 07:16 MCV 81.3 fl (80-96) 01/23/19 07:16 MCH 27.0 pg (25.7-33.7) 01/23/19 07:16 MCHC 33.2 g/dl (32.0-36.0) 01/23/19 07:16 RDW 15.0 % (11.6-15.6) 01/23/19 07:16 Plt Count 295 K/MM3 (134-434) 01/23/19 07:16 MPV 9.5 fl (7.5-11.1) 01/23/19 07:16 Sodium 139 mmol/L (136-145) 01/23/19 07:16 Potassium 3.8 mmol/L (3.5-5.1) 01/23/19 07:16 Chloride 109 mmol/L (98-107) H 01/23/19 07:16 Carbon Dioxide 25 mmol/L (21-32) 01/23/19 07:16 Anion Gap 5 MMOL/L (8-16) L 01/23/19 07:16 BUN 5.0 mg/dl (7-18) L 01/23/19 07:16 Creatinine 0.5 mg/dl (0.55-1.3) L 01/23/19 07:16 Est GFR (CKD-EPI)AfAm 159.23 01/23/19 07:16 Est GFR (CKD-EPI)NonAf 137.38 01/23/19 07:16 Random Glucose 98 mg/dl (74-106) 01/23/19 07:16 Calcium 8.7 mg/dl (8.5-10) 01/23/19 07:16 Total Bilirubin 0.6 mg/dl (0.2-1) 01/23/19 07:16 AST 38 U/L (15-37) H 01/23/19 07:16 ALT 44 U/L (13-61) 01/23/19 07:16 Alkaline Phosphatase 48 U/L (45-117) D 01/23/19 07:16 Total Protein 6.6 g/dl (6.4-8.2) 01/23/19 07:16 Albumin 3.4 g/dl (3.4-5.0) 01/23/19 07:16 UGI pending If no leak and no obstruction, will start clears and plan for discharge Problem List - Problems (1) Morbid obesity due to excess calories Code(s): E66.01 - MORBID (SEVERE) OBESITY DUE TO EXCESS CALORIES (2) BMI 36.0-36.9,adult Code(s): Z68.36 - BODY MASS INDEX (BMI) 36.0-36.9, ADULT (3) Obstructive sleep apnea Code(s): G47.33 - OBSTRUCTIVE SLEEP APNEA (ADULT) (PEDIATRIC)
[2019-01-23] MEDS: ENOXAPARIN NA (PORCINE) 40 MG/0.4 ML DISP.SYRIN SQ SCH (09:38)
[2019-01-23] MEDS: FAMOTIDINE 20 MG/50 ML IVPB 20 MG/50 ML MG IVPB SCH (09:38)
--- NOTE | 2019-01-23 09:46 | PN ---
Progress Note, Physician Chief Complaint: mild abdominal discomfort - Current Medication List Current Medications: Active Medications Enoxaparin Sodium (Lovenox -) 40 mg SQ BID [facility] Last Admin: 01/23/19 09:38 Dose: 40 mg Hydromorphone HCl (Dilaudid Injection -) 1 mg IVPB Q3H PRN PRN Reason: PAIN LEVEL 4 - 6 Famotidine/Sodium Chloride (Pepcid 20 Mg Premixed Ivpb -) 20 mg in 50 mls @ 100 mls/hr IVPB BID [facility] Last Admin: 01/23/19 09:38 Dose: 100 mls/hr Sodium Chloride (Normal Saline -) 1,000 mls @ 150 mls/hr IV ASDIR HERLINDA Metoclopramide HCl (Reglan Injection -) 10 mg IVPUSH Q6H [facility] Last Admin: 01/23/19 05:37 Dose: 10 mg Ondansetron HCl (Zofran Injection) 4 mg IVPUSH Q4H [facility] Last Admin: 01/23/19 09:38 Dose: 4 mg - Objective Vital Signs: Vital Signs Temperature 98.1 F 01/23/19 05:00 Pulse Rate 73 01/23/19 05:00 Respiratory Rate 18 01/23/19 05:00 Blood Pressure 118/63 01/23/19 05:00 O2 Sat by Pulse Oximetry (%) 97 01/23/19 05:00 Constitutional: Yes: Well Nourished Eyes: Yes: WNL Neck: Yes: WNL Cardiovascular: Yes: WNL Respiratory: Yes: WNL Gastrointestinal: Yes: Tenderness, Epigastrium Genitourinary: Yes: WNL Musculoskeletal: Yes: WNL Extremities: Yes: WNL Edema: No Peripheral Pulses WNL: Yes Integumentary: Yes: WNL Neurological: Yes: WNL Labs: CBC, BMP 01/23/19 07:16 01/23/19 07:16 Assessment/Plan 23 yo female with morbid obesity, DAISY S/P laparoscopic vertical sleeve gastrectomy. Laparoscopic wedge liver biopsy. Laparoscopic oversewing of bleeding staple line POD #0. cont pain management. incentive spirometry. -GI, DVT prophylaxis. -cont reglan for nausea -chronic iron deficiency anemia: monitor with PCP. -for UGI series today -blood work reviewed and acceptable. -DC home later today if X-ray is WNL and cleared by surgery. cleared from medical perspective.
[2019-01-23 13:58] VITALS: BP 115/65; PULSE 69
[2019-01-23] MEDS ORDERED: ACETAMINOPHEN 1000 MG/100 ML VIAL (NON FORMULARY) IVPB ONE (15:00)
[2019-01-23] MEDS ORDERED: oxyCODONE HCL 5 MG TABLET PO PRN (15:33)
--- NOTE | 2019-01-23 15:34 | PN ---
Progress Note (short form) - Note Progress Note: UGI reported by Dr Mccarty No leak/obstruction Problem List - Problems (1) Morbid obesity due to excess calories Code(s): E66.01 - MORBID (SEVERE) OBESITY DUE TO EXCESS CALORIES (2) BMI 36.0-36.9,adult Code(s): Z68.36 - BODY MASS INDEX (BMI) 36.0-36.9, ADULT (3) Obstructive sleep apnea Code(s): G47.33 - OBSTRUCTIVE SLEEP APNEA (ADULT) (PEDIATRIC)
[2019-01-23] MEDS ORDERED: SODIUM CHLORIDE 1,000 ML IV SCH (15:45)
--- NOTE | 2019-01-25 17:44 | PATH ---
Surgical Pathology Report Patient Name: CHARLIE GARCIA Med. Rec. #: [id number] /Age/Gender: 1995 (Age: 23) / F Account: [id number] Location: [facility] MED-SURG Taken: 01/22/2019 Received: 01/22/2019 Reported: 01/25/2019 Physicians: Hector Madison M.D. Specimen(s) Received A: GREATER CURVATURE STOMACH B: LIVER BIOPSY Clinical History Morbid obesity Final Diagnosis A. GREATER CURVATURE STOMACH, LAPAROSCOPIC VERTICAL SLEEVE GASTRECTOMY: SEGMENT OF STOMACH SHOWING MILD CHRONIC GASTRITIS. IMMUNOSTAIN IS NEGATIVE FOR H. PYLORI ORGANISMS. B. LIVER, BIOPSY: LIVER TISSUE WITH STEATOSIS (30%), DIFFUSE. NO HISTOLOGIC EVIDENCE OF HEPATITIS. NO INCREASE IN FIBROSIS (TRICHROME STAIN) OR IRON (IRON STAIN) DEPOSITION. Electronically Signed Elham Su M.D. Gross Description A. Received in formalin, labeled "greater curvature of stomach," is a 14.5 x 3.5 cm. portion of stomach with a stapled margin of resection. The serosa is pennington-vaughn with minimal attached fat. The mucosa is pennington-pink with normal folds. No mucosal masses are identified. Engineering Program Analyst sections are submitted in one cassette. B. Received in formalin, labeled "liver biopsy" is a 3 x 1.2 x 0.5 cm portion of yellow-pennington tissue, consistent with liver. Engineering Program Analyst tissue is submitted in one cassette. AE/01/24/2019 ebram/01/24/2019
== END 2019-01-23 16:01 | disposition home or self-care (01) | DRG 403 ==
LOC: FM/S 08:42
PROVIDERS: ADMIT Surgery; ATTEND Surgery
PROC: 0DB64Z3 Excision of Stomach, Percutaneous Endoscopic Approach, Vertical (ICD-10-PCS; principal; 2019-01-22 10:00)
PROC: 0FB24ZX Excision of Left Lobe Liver, Percutaneous Endoscopic Approach, Diagnostic (ICD-10-PCS; 2019-01-22 10:00)
DX: E66.01 Morbid (severe) obesity due to excess calories (principal); Z68.36 Body mass index [BMI] 36.0-36.9, adult; G47.33 Obstructive sleep apnea (adult) (pediatric); R16.0 Hepatomegaly, not elsewhere classified
CPT/HCPCS: 36415; 74241-TC-FY; 80053; 84703; 85027; 88305-TC; 88313-TC; 94760; J0131; J7030

== ENCOUNTER 2019-01-31 16:01 | Emergency (ER) | payer OTHER ==
--- NOTE | 2019-01-31 16:04 | PDOC ---
Rapid Medical Evaluation Time Seen by Provider: 01/31/19 16:03 Medical Evaluation: Allergies Allergy/AdvReac Type Severity Reaction Status Date / Time No Known Allergies Allergy Verified 01/22/19 09:16 01/31/19 16:03 I have performed a brief in-person evaluation of this patient. The patient presents with a chief complaint of: dehydrated, gastric sleeve done last week Pertinent physical exam findings:stable and in NAD, non-focal I have ordered the following:labs The patient will proceed to the ED for further evaluation.
[2019-01-31 16:06] VITALS: BP 115/78; PULSE 97; TEMP 98.1; BMI 33.5
[2019-01-31 16:44] LABS: BASO % 0.8 % (0-2.0); EOS % 3.5 % (0-4.5); HEMATOCRIT 38.6 % (32.4-45.2); HEMOGLOBIN 12.5 GM/dL (10.7-15.3); LYMPH % 21.8 % (8-40); MCH 26.2 pg (25.7-33.7); MCHC 32.3 g/dl (32.0-36.0); MEAN CELL VOLUME 81.2 fl (80-96); MEAN PLT VOLUME 9.1 fl (7.5-11.1); MONO % 9.5 % (3.8-10.2); NEUT % 64.4 % (42.8-82.8); PLATELET COUNT 464 K/MM3 (134-434); RBC 4.76 M/mm3 (3.60-5.2); RDW 15.9 % (11.6-15.6)
[2019-01-31 17:03] LABS: ALBUMIN 4.2 g/dl (3.4-5.0); BILIRUBIN,TOTAL 0.5 mg/dL (0.2-1); BLOOD UREA NITROGEN 11.6 mg/dL (7-18); CALCIUM 10.4 mg/dL (8.5-10.1); CREATININE 0.7 mg/dL (0.55-1.3); POTASSIUM 4.3 mmol/L (3.5-5.1); TOT PROT 8.7 g/dl (6.4-8.2)
[2019-01-31] MEDS ORDERED: SODIUM CHLORIDE 0.9% 1000 ML INFUS.BAG IV ONE (18:33)
--- NOTE | 2019-01-31 20:27 | PDOC ---
History of Present Illness - General Chief Complaint: Headache Stated Complaint: EVALUATION Time Seen by Provider: 01/31/19 16:03 Past History - Past Medical History Allergies/Adverse Reactions: Allergies Allergy/AdvReac Type Severity Reaction Status Date / Time No Known Allergies Allergy Verified 01/31/19 16:05 Home Medications: Ambulatory Orders Docusate Sodium [Colace -] 100 mg PO TID #90 capsule 01/22/19 Famotidine [Pepcid] 20 mg PO BID #60 tablet 01/22/19 Ondansetron [Zofran -] 8 mg PO TID #30 tablet 01/22/19 Oxycodone HCl/Acetaminophen [Percocet 5-325 mg Tablet] 1 - 2 tab PO Q6H #28 tab MDD 4 01/22/19 Anemia: No Asthma: Yes (as a child) Cancer: No Cardiac Disorders: No CVA: No COPD: No CHF: No Dementia: No Diabetes: No GI Disorders: No Disorders: No HTN: No Hypercholesterolemia: No Liver Disease: No Seizures: No Thyroid Disease: No - Surgical History Abdominal Surgery: Yes (GASTRIC SLEEVE 01/22/19) - Reproductive History Therapeutic (s) & number: No - Immunization History Immunization Up to Date: Yes - Suicide/Smoking/Psychosocial Hx Smoking Status: No Smoking History: Never smoked Have you smoked in the past 12 months: No Number of Cigarettes Smoked Daily: 0 Hx Alcohol Use: No Drug/Substance Use Hx: No Substance Use Type: None Hx Substance Use Treatment: No *Physical Exam - Vital Signs Last Vital Signs Temp Pulse Resp BP Pulse Ox 98.1 F 97 H 16 115/78 100 01/31/19 16:02 01/31/19 16:02 01/31/19 16:02 01/31/19 16:02 01/31/19 16:02 ED Treatment Course - LABORATORY CBC & Chemistry Diagram: 01/31/19 16:19 01/31/19 20:42 - ADDITIONAL ORDERS Additional order review: Laboratory Results 01/31/19 16:19 Sodium 140 Potassium 4.3 Chloride 100 Carbon Dioxide 23 Anion Gap 18 H BUN 11.6 Creatinine 0.7 Est GFR (CKD-EPI)AfAm 142.54 Est GFR (CKD-EPI)NonAf 122.98 Random Glucose 77 Calcium 10.4 H Total Bilirubin 0.5 AST 12 L ALT 20 Alkaline Phosphatase 74 Total Protein 8.7 H Albumin 4.2 01/31/19 16:19 RBC 4.76 MCV 81.2 MCHC 32.3 RDW 15.9 H MPV 9.1 Neutrophils % 64.4 Lymphocytes % 21.8 D Monocytes % 9.5 Eosinophils % 3.5 D Basophils % 0.8 - Medications Given in the ED: ED Medications Discontinued Medications Generic Name Dose Route Start Last Admin Trade Name Melva PRN Reason Stop Dose Admin Sodium Chloride 1,000 ml 01/31/19 18:33 01/31/19 18:38 Normal Saline - IV 01/31/19 18:34 1,000 ml ONCE ONE Administration *DC/Admit/Observation/Transfer Diagnosis at time of Disposition: Dehydration - Discharge Dispostion Disposition: HOME Condition at time of disposition: Stable Decision to Admit order: No - Referrals Referrals: Liberty Harrell MD [Primary Care Provider] - - Patient Instructions Printed Discharge Instructions: DI for Dehydration -- Adult, DI for Vertical Sleeve Gastrectomy Additional Instructions: You were evaluated for your lightheadedness today You are most likely dehydrated as a result from not drinking/eating after your surgery Take small sips of water throughout the day Continue your medications as prescribed by your surgeon and keep your follow up appointment Return to the ER for worsening pain, fever, vomiting, or if you have any changes in your symptoms - Post Discharge Activity Forms/Work/School Notes: Back to Work
[2019-01-31 21:31] LABS: ALBUMIN 3.7 g/dl (3.4-5.0); BILIRUBIN,TOTAL 0.4 mg/dL (0.2-1); BLOOD UREA NITROGEN 9.8 mg/dL (7-18); CALCIUM 9.3 mg/dL (8.5-10.1); CREATININE 0.6 mg/dL (0.55-1.3); POTASSIUM 3.9 mmol/L (3.5-5.1); TOT PROT 7.7 g/dl (6.4-8.2)
--- NOTE | 2019-02-01 12:25 | EKG ---
Test Reason : Blood Pressure : / mmHG Vent. Rate : 078 BPM Atrial Rate : 078 BPM P-R Int : 124 ms QRS Dur : 086 ms QT Int : 410 ms P-R-T Axes : 030 052 040 degrees QTc Int : 467 ms NORMAL SINUS RHYTHM NORMAL ECG NO PREVIOUS ECGS AVAILABLE Confirmed by KEENA HOOD MD ([id number]) on 02/01/2019 12:25:07 PM Referred By: Confirmed By:KEENA HOOD MD
== END 2019-01-31 22:01 | disposition home or self-care (01) ==
LOC: JER 16:01
PROC: 3E0337Z Introduction of Electrolytic and Water Balance Substance into Peripheral Vein, Percutaneous Approach (ICD-10-PCS; principal; 2019-01-31)
DX: E86.0 Dehydration (principal); Z98.84 Bariatric surgery status
CPT/HCPCS: 36415; 80053; 85025; 93005; 93010; 99283-25; J7030

== ENCOUNTER 2019-02-01 04:10 | Emergency (ER) | payer OTHER ==
[2019-02-01 04:32] VITALS: BP 98/67; PULSE 73; TEMP 98; BMI 34.5
--- NOTE | 2019-02-01 04:37 | PDOC ---
Attending Attestation - Resident Resident Name: Jovi Wolff - ED Attending Attestation I have performed the following: I have examined & evaluated the patient, The case was reviewed & discussed with the resident, I agree w/resident's findings & plan - HPI HPI: 02/01/19 05:08 see resident hpi - Physicial Exam PE: 02/01/19 05:09 agree with resident exam - Medical Decision Making 02/01/19 05:09 23-year-old female status post bariatric surgery last week for a wound check Tissue adhesive overlying epigastric wound no longer adhered Steri-Strips placed due to a punctate opening There are no signs of infection There is no abnormal tenderness Patient will be discharged to follow-up with surgery as scheduled
--- NOTE | 2019-02-01 04:49 | PDOC ---
History of Present Illness - General Chief Complaint: Revisit,Wound Recheck Stated Complaint: WOUND PROBLEM Time Seen by Provider: 02/01/19 04:33 History Source: Patient Exam Limitations: No Limitations - History of Present Illness Initial Comments: 02/01/19 05:07 Hortencia Randall is a 23F with PMH sleeve gastrectomy 10 days ago presenting as a re -visit for the opening of one of her laparoscopy incisions. Patient got a sleeve gastrectomy 10 days [employer] and has been recovering well until yesterday. Came to ED 01/31/19 for dehydration and poor PO intake, got 2L IVF and felt better. However, now back in ED because she noticed that her lap incisions was coming unglued, looked underneath and saw a hole in her skin and became concerned. Patient reports feeling fine, much better after fluids, denies fever , chills, N/V, C/D, dizziness, abd pain, headache. Past History - Past Medical History Allergies/Adverse Reactions: Allergies Allergy/AdvReac Type Severity Reaction Status Date / Time No Known Allergies Allergy Verified 02/01/19 04:32 Home Medications: Ambulatory Orders Docusate Sodium [Colace -] 100 mg PO TID #90 capsule 01/22/19 Famotidine [Pepcid] 20 mg PO BID #60 tablet 01/22/19 Ondansetron [Zofran -] 8 mg PO TID #30 tablet 01/22/19 Oxycodone HCl/Acetaminophen [Percocet 5-325 mg Tablet] 1 - 2 tab PO Q6H #28 tab MDD 4 01/22/19 Anemia: No Asthma: Yes (as a child) Cancer: No Cardiac Disorders: No CVA: No COPD: No CHF: No Dementia: No Diabetes: No GI Disorders: No Disorders: No HTN: No Hypercholesterolemia: No Liver Disease: No Seizures: No Thyroid Disease: No - Surgical History Abdominal Surgery: Yes (GASTRIC SLEEVE 01/22/19) - Reproductive History Therapeutic (s) & number: No - Immunization History Immunization Up to Date: Yes - Suicide/Smoking/Psychosocial Hx Smoking Status: No Smoking History: Never smoked Have you smoked in the past 12 months: No Number of Cigarettes Smoked Daily: 0 Information on smoking cessation initiated: No Hx Alcohol Use: No Drug/Substance Use Hx: No Substance Use Type: None Hx Substance Use Treatment: No Review of Systems - Review of Systems Constitutional: No: Symptoms Reported HEENTM: No: Symptoms Reported Respiratory: No: Symptoms reported Cardiac (ROS): No: Symptoms Reported ABD/GI: No: Symptoms Reported : No: Symptoms Reported Musculoskeletal: No: Symptoms Reported Integumentary: Yes: Other (open incision hole under loosened dermabond in upper middle abdomen) Neurological: No: Symptoms reported Endocrine: No: Symptoms Reported Hematologic/Lymphatic: No: Symptoms Reported All Other Systems: Reviewed and Negative *Physical Exam - Vital Signs Last Vital Signs Temp Pulse Resp BP Pulse Ox 98 F 73 19 98/67 98 02/01/19 04:10 02/01/19 04:10 02/01/19 04:10 02/01/19 04:10 02/01/19 04:10 - Physical Exam General Appearance: Yes: Nourished, Appropriately Dressed, Obese. No: Apparent Distress HEENT: positive: EOMI, TINO, Normal Voice, Symmetrical. negative: Scleral Icterus (R), Scleral Icterus (L), Tonsillar Erythema, Hearing Decreased Neck: positive: Trachea midline, Normal Thyroid, Supple. negative: Tender Respiratory/Chest: positive: Lungs Clear, Normal Breath Sounds. negative: Respiratory Distress, Accessory Muscle Use, Crackles, Rales, Rhonchi Cardiovascular: positive: Regular Rhythm, Regular Rate. negative: Murmur Gastrointestinal/Abdominal: positive: Normal Bowel Sounds, Soft, Organomegaly, Protuberent, Other (well healed lap incisions covered in dermabond. epigastric incision covered in loose dermabond with healing skin edges, no discharge or bleeding.). negative: Tender, Distended, Guarding Musculoskeletal: positive: Normal Inspection Extremity: positive: Normal Capillary Refill, Normal Inspection, Normal Range of Motion. negative: Tender Integumentary: positive: Normal Color, Dry, Warm Neurologic: positive: Fully Oriented, Alert, Normal Mood/Affect, Normal Response Procedures - Laceration/Wound Repair Upper Anterior Abdomen Wound Length: to 2.5 cm Wound Explored: clean Wound's Depth, Shape: superficial Wound Repaired With: Steri-strips Progress: 02/01/19 05:15 incision ~1cm, well-approximated by Steri-Strips Medical Decision Making - Medical Decision Making 02/01/19 05:07 Hortencia Randall is a 23F with PMH sleeve gastrectomy 10 days ago presenting as a re -visit for the opening of one of her laparoscopy incisions. Incision appears clean and is non-tender and non-erythematous. Removed dermabond and re-applied 2 steri-strips to approximate edges. Advised patient about wound care and discharged home with PCP follow-up. *DC/Admit/Observation/Transfer Diagnosis at time of Disposition: Surgical wound dehiscence Qualifiers: Encounter type: initial encounter Qualified Code(s): T81.31XA - Disruption of external operation (surgical) wound, not elsewhere classified, initial encounter - Discharge Dispostion Disposition: HOME Condition at time of disposition: Improved Decision to Admit order: No - Referrals Referrals: Liberty Harrell MD [Primary Care Provider] - - Patient Instructions Printed Discharge Instructions: How to Care for a Surgical Wound, DI for Wound Infection Additional Instructions: Today you were evaluated for the opening of one of your surgical wounds. You were examined and found to have the surgical glue holding one of your wounds closed to be falling off. Instead of re-gluing the wound shut, we applied some adhesive strips to keep it closed. The wound is not deep; your abdominal contents will not be coming out of the hole. Please keep an eye on all your surgical wounds to check if they start having pus or blood come from them, as well as if they become painful or red, which are concerning features for wound infection and you would need to return to the closest emergency room immediately. Other than that, please continue to take care of your wounds as instructed by your surgeon and follow-up with him as scheduled. Remember to stay hydrated and eat well as you recover from your procedure. - Post Discharge Activity
== END 2019-02-01 04:59 | disposition home or self-care (01) ==
LOC: JER 04:10
DX: T81.31XA Disruption of external operation (surgical) wound, not elsewhere classified, initial encounter (principal); Z98.84 Bariatric surgery status
CPT/HCPCS: 99281-25

== ENCOUNTER 2019-02-08 19:24 | Emergency (ER) | payer OTHER ==
[2019-02-08] MEDS ORDERED: SODIUM CHLORIDE 1,000 ML IV STA (20:06)
[2019-02-08 20:07] VITALS: TEMP 98.3; BMI 31.7
[2019-02-08] MEDS ORDERED: ONDANSETRON 4 MG/2 ML VIAL IVPB ONE (20:08)
--- NOTE | 2019-02-08 20:09 | PDOC ---
Rapid Medical Evaluation Chief Complaint: Weakness Time Seen by Provider: 02/08/19 20:05 Medical Evaluation: Allergies Allergy/AdvReac Type Severity Reaction Status Date / Time No Known Allergies Allergy Verified 02/01/19 04:32 02/08/19 20:05 23 year old c/o nausea/ vomiting s/p gastric sleeve on 01/22/2019 PE: patient alert ox3. A: nausea vomiting p: labs IVF zofran Discharge Disposition - Diagnosis Nausea & vomiting Qualifiers: Vomiting type: unspecified Vomiting Intractability: non-intractable Qualified Code(s): R11.2 - Nausea with vomiting, unspecified - Referrals - Patient Instructions - Post Discharge Activity
[2019-02-08] MEDS ORDERED: ONDANSETRON 4 MG/2 ML VIAL ONE (21:22)
[2019-02-08 21:49] LABS: EOS % 1.5 % (0-4.5); HEMATOCRIT 37.9 % (32.4-45.2); LYMPH % 21.7 % (8-40); MCHC 31.7 g/dl (32.0-36.0); NEUT % 63.8 % (42.8-82.8); PLATELET COUNT 354 K/MM3 (134-434); RBC 4.62 M/mm3 (3.60-5.2); RDW 15.6 % (11.6-15.6); WHITE BLOOD COUNT 5.9 K/mm3 (4.0-10.0)
[2019-02-08 22:01] LABS: EPI CELLS 12.7 /HPF (0-5/HPF); HYALINE CASTS 44 /lpf (0-8); URINE APPEARANCE CLOUDY; URINE BILIRUBIN NEGATIVE (NEGATIVE); URINE COLOR YELLOW; URINE GLUCOSE (UA) NEGATIVE (NEGATIVE); URINE KETONE 4+ (NEGATIVE); URINE LEUK ESTERASE NEGATIVE (NEGATIVE); URINE NITRITE NEGATIVE (NEGATIVE); URINE PROTEIN 1+ (NEGATIVE); URINE RBC 5 /hpf (0-4); URINE WBC 8 /hpf (0-5)
[2019-02-08 22:10] LABS: ALBUMIN 4.2 g/dl (3.4-5.0); BILIRUBIN,TOTAL 0.3 mg/dL (0.2-1); BLOOD UREA NITROGEN 4.3 mg/dL (7-18); CALCIUM 9.8 mg/dL (8.5-10.1); CREATININE 0.7 mg/dL (0.55-1.3); TOT PROT 8.1 g/dl (6.4-8.2)
[2019-02-08] MEDS ORDERED: DEXTROSE 5%-NORMAL SALINE 1,000 ML IV ONE (22:19)
--- NOTE | 2019-02-08 22:38 | PDOC ---
History of Present Illness - General Chief Complaint: Weakness Stated Complaint: DEHYDRATION Time Seen by Provider: 02/08/19 20:05 History Source: Patient Exam Limitations: No Limitations Past History - Past Medical History Allergies/Adverse Reactions: Allergies Allergy/AdvReac Type Severity Reaction Status Date / Time No Known Allergies Allergy Verified 02/01/19 04:32 Home Medications: Ambulatory Orders Docusate Sodium [Colace -] 100 mg PO TID #90 capsule 01/22/19 Famotidine [Pepcid] 20 mg PO BID #60 tablet 01/22/19 Ondansetron [Zofran -] 8 mg PO TID #30 tablet 01/22/19 Oxycodone HCl/Acetaminophen [Percocet 5-325 mg Tablet] 1 - 2 tab PO Q6H #28 tab MDD 4 01/22/19 Ondansetron [Zofran *Odt*] 4 mg SL BID PRN #14 od.tablet 02/09/19 Anemia: No Asthma: Yes (as a child) Cancer: No Cardiac Disorders: No CVA: No COPD: No CHF: No Dementia: No Diabetes: No GI Disorders: No Disorders: No HTN: No Hypercholesterolemia: No Liver Disease: No Seizures: No Thyroid Disease: No - Surgical History Abdominal Surgery: Yes (GASTRIC SLEEVE 01/22/19) - Reproductive History Therapeutic (s) & number: No - Immunization History Immunization Up to Date: Yes - Suicide/Smoking/Psychosocial Hx Smoking Status: No Smoking History: Never smoked Have you smoked in the past 12 months: No Number of Cigarettes Smoked Daily: 0 Information on smoking cessation initiated: No Hx Alcohol Use: No Drug/Substance Use Hx: No Substance Use Type: None Hx Substance Use Treatment: No *Physical Exam - Vital Signs Last Vital Signs Temp Pulse Resp BP Pulse Ox 98.3 F 82 17 101/71 100 02/08/19 20:05 02/08/19 20:05 02/08/19 20:05 02/08/19 20:05 02/08/19 20:05 - Physical Exam General Appearance: No: Apparent Distress Respiratory/Chest: positive: Lungs Clear, Normal Breath Sounds. negative: Respiratory Distress Cardiovascular: positive: Regular Rhythm, Regular Rate, S1, S2. negative: Murmur Gastrointestinal/Abdominal: positive: Normal Bowel Sounds, Soft. negative: Tender, Distended, Guarding, Rebound Neurologic: positive: Alert, Normal Mood/Affect ED Treatment Course - LABORATORY CBC & Chemistry Diagram: 02/08/19 21:33 02/08/19 21:33 - ADDITIONAL ORDERS Additional order review: Laboratory Results 02/08/19 02/08/19 02/08/19 21:33 21:33 21:33 Sodium Potassium Chloride Carbon Dioxide Anion Gap BUN Creatinine Est GFR (CKD-EPI)AfAm Est GFR (CKD-EPI)NonAf Random Glucose Calcium Total Bilirubin AST ALT Alkaline Phosphatase Total Protein Albumin Lipase 260 Urine Color Yellow Urine Appearance Cloudy Urine pH 6.0 Ur Specific [place] 1.025 Urine Protein 1+ H Urine Glucose (UA) Negative Urine Ketones 4+ H Urine Blood Negative Urine Nitrite Negative Urine Bilirubin Negative Urine Urobilinogen 1.0 Ur Leukocyte Esterase Negative Urine WBC (Auto) 8 Urine RBC (Auto) 5 Urine Casts (Auto) 44 U Epithel Cells (Auto) 12.7 Urine Bacteria (Auto) 230.0 Urine HCG, Qual Negative 02/08/19 21:33 Sodium 141 Potassium 4.0 Chloride 104 Carbon Dioxide 21 Anion Gap 16 BUN 4.3 L Creatinine 0.7 Est GFR (CKD-EPI)AfAm 142.54 Est GFR (CKD-EPI)NonAf 122.98 Random Glucose 65 L Calcium 9.8 Total Bilirubin 0.3 AST 16 ALT 19 Alkaline Phosphatase 73 Total Protein 8.1 Albumin 4.2 Lipase Urine Color Urine Appearance Urine pH Ur Specific [place] Urine Protein Urine Glucose (UA) Urine Ketones Urine Blood Urine Nitrite Urine Bilirubin Urine Urobilinogen Ur Leukocyte Esterase Urine WBC (Auto) Urine RBC (Auto) Urine Casts (Auto) U Epithel Cells (Auto) Urine Bacteria (Auto) Urine HCG, Qual 02/08/19 21:33 RBC 4.62 MCV 82.0 MCHC 31.7 L RDW 15.6 MPV 10.0 Neutrophils % 63.8 Lymphocytes % 21.7 Monocytes % 12.0 H Eosinophils % 1.5 Basophils % 1.0 - Medications Given in the ED: ED Medications Discontinued Medications Generic Name Dose Route Start Last Admin Trade Name Freq PRN Reason Stop Dose Admin Sodium Chloride 1,000 mls @ 1,000 mls/hr 02/08/19 20:06 02/08/19 21:38 Normal Saline - IV 02/08/19 21:05 1,000 mls/hr ASDIR STA Administration Ondansetron HCl 4 mg 02/08/19 20:08 02/08/19 21:38 Zofran Injection IVPB 02/08/19 20:09 4 mg ONCE ONE Administration Medical Decision Making - Medical Decision Making 23 y/o F hx of gastric bypass 01/22 (done by Dr. Madison), asthma presents with feeling lightheaded along with NBNB emesis from yesterday. Patient was on liquid diet for 2 weeks after her surgery; this week she was supposed to start taking protein shake but sates unable to keep anything down. Was seen 01/31 for similar complaints. Has f/u with Dr. Madison next week; states she tried calling but was told he was away. Patient mentions feeling constipated for past few days but took Milk of Magnesia yesterday which helped with bowel movement. Denies fever, urinary complaints. Abnormal Lab Results 02/08/19 02/08/19 02/08/19 21:33 21:33 21:33 MCHC 31.7 L Monocytes % 12.0 H BUN 4.3 L Random Glucose 65 L Urine Protein 1+ H Urine Ketones 4+ H Labs reviewed - patient dehydrated Already received 1L of NS; will also give D5NS given hypoglycemia Patient also given apple juice to drink Will d/w Dr. Madison as second visit to ED for same complaint 02/08/19 22:[address] Madison despite multiple calls made Patient states she is feeling better and prefers to go home Patient was able to tolerate PO liquids here Patient has f/u with Dr. Madison next week Return precautions given 02/09/19 00:02 *DC/Admit/Observation/Transfer Diagnosis at time of Disposition: Nausea & vomiting Qualifiers: Vomiting type: unspecified Vomiting Intractability: non-intractable Qualified Code(s): R11.2 - Nausea with vomiting, unspecified - Discharge Dispostion Disposition: HOME Condition at time of disposition: Improved Decision to Admit order: No - Prescriptions Prescriptions: Ondansetron [Zofran *Odt*] 4 mg SL BID PRN #14 od.tablet PRN Reason: Nausea - Referrals Referrals: Liberty Harrell MD [Primary Care Provider] - 2 Days Hector Madison MD [Staff Physician] - 2 Days - Patient Instructions Printed Discharge Instructions: DI for Abdominal Pain-Adult Additional Instructions: Thank you for choosing [facility]. It was a pleasure taking care of you. Please follow-up with Dr. Gricelda Tinajero as needed for nausea Recommend drinking liquids in small amounts Return to the Emergency Department if your symptoms worsen or persist, unable to tolerate liquids or other concerning symptoms. - Post Discharge Activity
[2019-02-09 00:22] VITALS: BP 118/78; PULSE 76
== END 2019-02-09 00:22 | disposition home or self-care (01) ==
LOC: JER 19:24
PROC: 3E033GC Introduction of Other Therapeutic Substance into Peripheral Vein, Percutaneous Approach (ICD-10-PCS; principal; 2019-02-08)
PROC: 3E0337Z Introduction of Electrolytic and Water Balance Substance into Peripheral Vein, Percutaneous Approach (ICD-10-PCS; 2019-02-08)
DX: R11.2 Nausea with vomiting, unspecified (principal); Z98.84 Bariatric surgery status; J45.909 Unspecified asthma, uncomplicated
CPT/HCPCS: 36415; 80053; 81003; 83690; 84703; 85025; 99284-25; J7030

== ENCOUNTER 2019-02-10 11:17 | Emergency (ER) | payer OTHER ==
[2019-02-10 11:27] VITALS: BP 111/75; PULSE 74; TEMP 98.2; BMI 31.6
[2019-02-10] MEDS ORDERED: SODIUM CHLORIDE 1,000 ML IV ONE (11:49)
[2019-02-10] MEDS ORDERED: ONDANSETRON 4 MG/2 ML VIAL IVPB ONE (11:49)
--- NOTE | 2019-02-10 11:55 | PDOC ---
History of Present Illness - General Chief Complaint: Nausea/Vomiting Stated Complaint: N/V SP GASTRIC SLEEVE Time Seen by Provider: 02/10/19 11:48 History Source: Patient Exam Limitations: No Limitations - History of Present Illness Travel History: No Initial Comments: 02/10/19 11:49 23y F hgx of asthma, sp gastric sleeve [address] Madison presents with vomiting. pt states she was doing well until this week,w hen she was supposed to advanced her diet to a soft diet - she had some scrambled eggs on tuesday and felt nauseus. On she had milk of magnesia as she thought she was constipated, that she vomitied, since then she has been unable to tolerate any oral intake - any sips of water/juice will cause vomiting. pt denies any abd pain, back pain, fever/chills. pts last BM was after the milk of magnesia. she went to an ED on tue and has labs/zofra/fluids with improvment of symtoms. she was given the dissolvable zofran but her insurance didnt cover it. PMD: Dr. Harrell Surgeon: Dr. Madison Past History - Past Medical History Allergies/Adverse Reactions: Allergies Allergy/AdvReac Type Severity Reaction Status Date / Time No Known Allergies Allergy Verified 02/10/19 11:18 Home Medications: Ambulatory Orders Docusate Sodium [Colace -] 100 mg PO TID #90 capsule 01/22/19 Famotidine [Pepcid] 20 mg PO BID #60 tablet 01/22/19 Ondansetron [Zofran -] 8 mg PO TID #30 tablet 01/22/19 Oxycodone HCl/Acetaminophen [Percocet 5-325 mg Tablet] 1 - 2 tab PO Q6H #28 tab MDD 4 01/22/19 Ondansetron [Zofran *Odt*] 4 mg SL BID PRN #14 od.tablet 02/09/19 Metoclopramide HCl [Reglan] 10 mg PO TID PRN #12 tablet 02/10/19 Ondansetron [Zofran -] 4 mg PO TID PRN #20 tablet 02/10/19 Anemia: No Asthma: Yes (as a child) Cancer: No Cardiac Disorders: No CVA: No COPD: No CHF: No Dementia: No Diabetes: No GI Disorders: No Disorders: No HTN: No Hypercholesterolemia: No Liver Disease: No Seizures: No Thyroid Disease: No - Surgical History Abdominal Surgery: Yes (GASTRIC SLEEVE 01/22/19) - Reproductive History Therapeutic (s) & number: No - Immunization History Immunization Up to Date: Yes - Suicide/Smoking/Psychosocial Hx Smoking Status: No Smoking History: Never smoked Have you smoked in the past 12 months: No Number of Cigarettes Smoked Daily: 0 Information on smoking cessation initiated: No Hx Alcohol Use: No Drug/Substance Use Hx: No Substance Use Type: None Hx Substance Use Treatment: No Review of Systems - Review of Systems Able to Perform ROS?: Yes Comments:: 02/10/19 11:53 Constitutional - no reported Fever, Chills, HEENT: no reported vision changes, sore throat Respiratory: no reported cough, sob, hemoptysis Cardiac: no reported chest pain, palpitations, light headedness, leg swelling Abd/GI: + nausea, vomiting, no reported abd pain, blood per rectum, melena, diarrhea : no reported dysuria, frequency, discharge Musculskelatal - no reported back pain, joint swelling skin - no reported bruising, erythema, rash neurological: no reported headache, numbness, focal weakness, tingling, ataxia, hematologic: no reported easy bruising, easy bleeding GENERAL: The patient is awake, alert, and fully oriented, Nontoxic - in no acute distress. HEAD: Normocephalic, atraumatic. EYES: extraocular movements intact, sclera anicteric, conjunctiva clear. ENT: Normal voice, dry mucous membranes. NECK: Normal range of motion, supple LUNGS: Breath sounds equal, clear to auscultation bilaterally. No wheezes, no rhonchi, no rales. HEART: Regular rate and rhythm, normal S1 and S2 without murmur, rub or gallop. ABDOMEN: Soft, nontender, normoactive bowel sounds. No guarding, no rebound. . No CVA tenderness EXTREMITIES: Normal range of motion, no edema. No clubbing or cyanosis. No cords, erythema, or tenderness. NEUROLOGICAL: No facial assymetry, Normal speech, PSYCH: Normal mood, normal affect. SKIN: Warm, Dry, normal turgor, abd wounds healing well without any discharge, acne on upper back *Physical Exam - Vital Signs Last Vital Signs Temp Pulse Resp BP Pulse Ox 98.2 F 74 20 111/75 100 02/10/19 11:19 02/10/19 11:19 02/10/19 11:19 02/10/19 11:19 02/10/19 11:19 ED Treatment Course - LABORATORY CBC & Chemistry Diagram: 02/10/19 12:23 02/10/19 12:23 Medical Decision Making - Medical Decision Making 02/10/19 11:54 23y f presenting wiht vomting sp gastric sleeve w/o pain exam unremarkble beside mildly dry mm will give fluids, will ck lytes zofran for nausea janis PO challenge pt if she feels better and will dw her surgeon 02/10/19 14:21 pt feelin gimproved tolerated approx 1/2 cup of water abd reassessed and is soft nontender cse dw dr. Madison - agrees w supportive care. no imaging necessary at this point. will have pt fu with him on tuesday return precautions were dsicussed I discussed the physical exam findings, ancillary test results and final diagnoses with the patient. I answered all of the patient's questions. The patient was satisfied with the care received and felt comfortable with the discharge plan and treatment plan. The patient will call their primary care physician within 24 hours to arrange follow-up and will return to the Emergency Department with any new, persistent or worsening symptoms. *DC/Admit/Observation/Transfer Diagnosis at time of Disposition: Status post laparoscopic sleeve gastrectomy Nausea & vomiting Qualifiers: Vomiting type: unspecified Vomiting Intractability: non-intractable Qualified Code(s): R11.2 - Nausea with vomiting, unspecified - Discharge Dispostion Disposition: HOME Condition at time of disposition: Improved Decision to Admit order: No - Referrals Referrals: Hector Madison MD [Staff Physician] - - Patient Instructions Printed Discharge Instructions: DI for Vomiting -- Adult Additional Instructions: Return to the emergency department immediately with ANY new, persistent or worsening symptoms including worsening abdominal pain, fevers, inability to tolerate oral intake, chest pain, shortness of breath or any other concerns. Stay well hydrated. You MUST call and follow up with your doctor tomorrow. Your emergency department visit is not complete without a followup with your doctor for reevaluation. Please make sure your doctor reviews the results of your emergency evaluation. Print Language: THAI - Post Discharge Activity
[2019-02-10] MEDS ORDERED: ONDANSETRON 4 MG/2 ML VIAL ONE (12:26)
[2019-02-10 12:30] LABS: BASO % 0.8 % (0-2.0); EOS % 2.6 % (0-4.5); HEMATOCRIT 33.6 % (32.4-45.2); HEMOGLOBIN 10.9 GM/dl (10.7-15.3); MCH 27.2 pg (25.7-33.7); MCHC 32.6 g/dl (32.0-36.0); MEAN CELL VOLUME 83.3 fl (80-96); MEAN PLT VOLUME 8.6 fl (7.5-11.1); MONO % 13.5 % (3.8-10.2); NEUT % 57.1 % (42.8-82.8); PLATELET COUNT 316 K/MM3 (134-434); RBC 4.03 M/mm3 (3.60-5.2); RDW 15.1 % (11.6-15.6); WHITE BLOOD COUNT 4.6 K/mm3 (4.0-10.8)
[2019-02-10 12:45] LABS: ALBUMIN 3.8 g/dl (3.4-5.0); BILIRUBIN,TOTAL 0.8 mg/dl (0.2-1); CALCIUM 9.1 mg/dl (8.5-10); CREATININE 0.6 mg/dl (0.55-1.3); POTASSIUM 3.3 mmol/L (3.5-5.1); TOT PROT 7.3 g/dl (6.4-8.2)
== END 2019-02-10 14:45 | disposition home or self-care (01) ==
LOC: FER 11:17
PROC: 3E033GC Introduction of Other Therapeutic Substance into Peripheral Vein, Percutaneous Approach (ICD-10-PCS; principal; 2019-02-10)
PROC: 3E0337Z Introduction of Electrolytic and Water Balance Substance into Peripheral Vein, Percutaneous Approach (ICD-10-PCS; 2019-02-10)
DX: R11.2 Nausea with vomiting, unspecified (principal); Z98.84 Bariatric surgery status
CPT/HCPCS: 36415; 80053; 85025; 96361; 96374; 99282-25; J7030

== ENCOUNTER 2019-02-16 21:04 | Emergency (ER) | payer OTHER ==
[2019-02-16 21:11] VITALS: BP 109/71; PULSE 85; TEMP 98.5; BMI 30.9
[2019-02-16] MEDS ORDERED: SODIUM CHLORIDE 1,000 ML IV ONE (21:18)
--- NOTE | 2019-02-16 21:29 | PDOC ---
Documentation entered by Dave Overton SCRIBE, acting as scribe for Varinder Malcolm MD. Varinder Malcolm MD: This documentation has been prepared by the Tian montoay Daniel, SCRIBE, under my direction and personally reviewed by me in its entirety. I confirm that the documentation accurately reflects all work , treatment, procedures, and medical decision making performed by me. History of Present Illness - General Chief Complaint: Weakness Stated Complaint: WEAKNESS History Source: Patient Exam Limitations: No Limitations - History of Present Illness Initial Comments: 02/16/19 21:24 The patient is a 23 year old female with a past medical history of gastric sleeve ([address] Madison) here today for evaluation of general weakness. The patient was seen last week for vomiting which she states has since resolved. She notes that she has not been eating well since her surgery and reports that she came in today due to general weakness. She states that she cannot stand for more than 10 minutes without needing to sit down and notes associated intermittent epigastric and bilateral shoulder pain. Patient denies headache, lightheadedness. Denies fever, chills. Denies chest pain, shortness of breath. Denies nausea, vomiting, diarrhea. Denies urinary symptoms. Allergies: NKA PCP: Liberty Harrell General: +general weakness. No fevers or chills, no weight loss HEENT: No change in vision. No sore throat,. No ear pain CardioVascular: No chest pain or shortness of breath Respiratory:No cough, or wheezing. Gastrointestinal: +epigastric pain. no nausea, vomiting, diarrhea or constipation, No rectal bleeding Genitourinary: No dysuria, hematuria, or frequency Musculoskeletal: +bilateral shoulder pain. No joint or muscle swelling Neurologic: No headache, vertigo, dizziness or loss of consciousness Psychiatric: nor depression Skin: No rashes or easy bruising Endocrine: no increased thirst or abnormal weight change Allergic: no skin or latex allergy All other systems reviewed and normal General: Well-nourished well-developed individual, no acute distress HEENT: Throat: Normal, tonsils normal, no erythema or exudate Neck: Supple, no meningeal signs, no lymphadenopathy Eyes::Pupils equal reactive and round, extraocular motion intact Chest: Nontender to palpation Cardiac: S1-S2 normal, regular rate and rhythm, no murmurs rubs or gallops Respiratory: Lungs clear to auscultation bilateral Abdomen: Soft, nondistended, normal bowel sounds, nontender to palpation diffusely Extremities: Warm, dry, no cyanosis, clubbing, or edema Skin: No rashes Neuro: Alert and oriented x3, nonfocal exam, grossly intact, normal gait Psych: Normal mood and affect 02/16/19 21:28 This is a 23-year-old female who is status post gastric sleeve approximately one month ago with a 30 pound weight loss. Patient comes in complaining of dehydration. Patient said that she had been vomiting a week ago but is not vomited in over a week however has difficult time eating anything and has gotten progressively weaker as per patient. Patient said she is able to drink and is making urine however she feels like she is also dehydrated. Patient did have a normal exam. Basic labs sent and patient will be hydrated with IV normal saline 02/16/19 23:30 And had a slightly elevated anion gap. So was given 2 L of fluid and BNP was repeated on repeat BMP anion gap was now normal however glucose and potassium were little low. Patient given some orange juice and 40 mEq of potassium. This will bring her potassium into the normal range. Patient discharged home will follow-up with her regular doctor and surgeon Past History - Past Medical History Allergies/Adverse Reactions: Allergies Allergy/AdvReac Type Severity Reaction Status Date / Time No Known Allergies Allergy Verified 02/10/19 11:18 Home Medications: Ambulatory Orders Docusate Sodium [Colace -] 100 mg PO TID #90 capsule 01/22/19 Famotidine [Pepcid] 20 mg PO BID #60 tablet 01/22/19 Ondansetron [Zofran -] 4 mg PO TID PRN #20 tablet 02/10/19 Anemia: No Asthma: Yes (as a child) Cancer: No Cardiac Disorders: No CVA: No COPD: No CHF: No Dementia: No Diabetes: No GI Disorders: No Disorders: No HTN: No Hypercholesterolemia: No Liver Disease: No Seizures: No Thyroid Disease: No - Surgical History Abdominal Surgery: Yes (GASTRIC SLEEVE 01/22/19) - Reproductive History Therapeutic (s) & number: No - Immunization History Immunization Up to Date: Yes - Suicide/Smoking/Psychosocial Hx Smoking Status: No Smoking History: Never smoked Have you smoked in the past 12 months: No Number of Cigarettes Smoked Daily: 0 Hx Alcohol Use: No Drug/Substance Use Hx: No Substance Use Type: None Hx Substance Use Treatment: No Review of Systems - Review of Systems Able to Perform ROS?: Yes *Physical Exam - Vital Signs Last Vital Signs Temp Pulse Resp BP Pulse Ox 98.5 F 85 16 109/71 100 02/16/19 21:06 02/16/19 21:06 02/16/19 21:06 02/16/19 21:06 02/16/19 21:06 ED Treatment Course - LABORATORY CBC & Chemistry Diagram: 02/16/19 21:35 02/16/19 23:30 *DC/Admit/Observation/Transfer Diagnosis at time of Disposition: Dehydration, Hypokalemia - Discharge Dispostion Disposition: HOME Condition at time of disposition: Stable Decision to Admit order: No - Referrals Referrals: Liberty Harrell MD [Primary Care Provider] - - Patient Instructions Additional Instructions: It is important that you stay well-hydrated and tried to eat. Your potassium was a little low so try to eat a half a banana a day if at all possible. Return to the emergency department immediately with ANY new, persistent or worsening symptoms. Continue any medications as previously prescribed by your physician. You should follow up with your primary doctor as soon as possible regarding today's emergency department visit. . Please make sure your doctor reviews the results of your emergency evaluation. Thank you for coming to the Emergency Department today for your care. It was a pleasure to see you today. Please note that your evaluation is INCOMPLETE until you follow-up with your doctor. - Post Discharge Activity
[2019-02-16 22:10] LABS: ALBUMIN 4.4 g/dl (3.4-5.0); BILIRUBIN,TOTAL 0.8 mg/dl (0.2-1); CALCIUM 9.9 mg/dl (8.5-10); CREATININE 0.6 mg/dl (0.55-1.3); POTASSIUM 3.4 mmol/L (3.5-5.1); TOT PROT 8.2 g/dl (6.4-8.2)
[2019-02-16 22:19] LABS: BASO % 0.9 % (0-2.0); EOS % 0.5 % (0-4.5); HEMATOCRIT 37.3 % (32.4-45.2); LYMPH % 17.1 % (8-40); MCH 26.4 pg (25.7-33.7); MCHC 32.2 g/dl (32.0-36.0); MEAN CELL VOLUME 81.8 fl (80-96); MEAN PLT VOLUME 10.8 fl (7.5-11.1); MONO % 10.5 % (3.8-10.2); PLATELET COUNT 299 K/MM3 (134-434); RBC 4.56 M/mm3 (3.60-5.2); RDW 14.8 % (11.6-15.6); WHITE BLOOD COUNT 5.3 K/mm3 (4.0-10.8)
[2019-02-16 23:50] LABS: CALCIUM 8.3 mg/dl (8.5-10); CREATININE 0.6 mg/dl (0.55-1.3)
[2019-02-16] MEDS ORDERED: POTASSIUM CHLORIDE TABS 20 MEQ TABLET.ER (FP) PO ONE (23:53)
[2019-02-16] MEDS ORDERED: POTASSIUM CHLORIDE ORAL LIQUID 20 MEQ/15 ML PO ONE (23:54)
[2019-02-16] MEDS ORDERED: POTASSIUM CHLORIDE ORAL LIQUID 20 MEQ/15 ML ONE (23:54)
== END 2019-02-17 00:05 | disposition home or self-care (01) ==
LOC: FER 21:04
PROC: 3E0337Z Introduction of Electrolytic and Water Balance Substance into Peripheral Vein, Percutaneous Approach (ICD-10-PCS; principal; 2019-02-16)
DX: E86.0 Dehydration (principal); E87.6 Hypokalemia; Z98.84 Bariatric surgery status; J45.909 Unspecified asthma, uncomplicated
CPT/HCPCS: 36415; 80048; 80053; 85025; 99283-25; J7030

== ENCOUNTER 2019-03-22 19:00 | Emergency (ER) | payer OTHER ==
[2019-03-22 19:06] VITALS: BP 112/83; PULSE 84; TEMP 98.4; BMI 29.6
[2019-03-22] MEDS ORDERED: SODIUM CHLORIDE 1,000 ML IV ONE ×2 (19:20→19:54)
[2019-03-22 19:59] LABS: BASO % 0.8 % (0-2.0); EOS % 1.5 % (0-4.5); HEMATOCRIT 33.5 % (32.4-45.2); LYMPH % 29.3 % (8-40); MCH 27.6 pg (25.7-33.7); MCHC 32.9 g/dl (32.0-36.0); MEAN CELL VOLUME 84.1 fl (80-96); MEAN PLT VOLUME 10.1 fl (7.5-11.1); MONO % 8.7 % (3.8-10.2); NEUT % 59.7 % (42.8-82.8); PLATELET COUNT 307 K/MM3 (134-434); RBC 3.99 M/mm3 (3.60-5.2); RDW 15.9 % (11.6-15.6); WHITE BLOOD COUNT 4.6 K/mm3 (4.0-10.8)
--- NOTE | 2019-03-22 20:04 | PDOC ---
Documentation entered by Ev Mane SCRIBE, acting as scribe for Varinder Malcolm MD. Varinder Malcolm MD: This documentation has been prepared by the Antonietta montoya Brenda, SCRIBE, under my direction and personally reviewed by me in its entirety. I confirm that the documentation accurately reflects all work , treatment, procedures, and medical decision making performed by me. History of Present Illness - General Chief Complaint: Weakness Stated Complaint: WEAKNESS, FEELS DEHYDRATED History Source: Patient Exam Limitations: No Limitations - History of Present Illness Initial Comments: 03/22/19 19:24 The patient is a 24 year old female, with a significant PMH of asthma (as a child) and gastric sleeve (done 2 months ago on January 22) who presents to the emergency department with generalized weakness. Jaxon states that ever since her Gastric Sleeve done on January 22, she has been to the ED a few times for feeling weak and dizzy. Today, she complains of the same symptoms, stating that she is dehydrated, not drinking enough liquids and having darker colored urine. The patient denies chest pain, shortness of breath, headache. Denies fever, chills, nausea, vomiting, diarrhea and constipation. Denies dysuria, frequency, urgency and hematuria. Allergies: NKA Past surgical history: Gastric Sleeve 01/22/19 Social history: Denies any tobacco use, alcohol use, or illicit drug use. PCP: Liberty Harrell ROS: General: (+) Generalized weakness. (+) Dizziness. No fevers or chills, no weight loss HEENT: No change in vision. No sore throat,. No ear pain CardioVascular: No chest pain or shortness of breath Respiratory:No cough, or wheezing. Gastrointestinal: no nausea, vomiting, diarrhea or constipation, No rectal bleeding Genitourinary: (+) Dark colored urine. No dysuria, hematuria, or frequency Musculoskeletal: No joint or muscle pain or swelling Neurologic: No headache, vertigo, or loss of consciousness Psychiatric: nor depression Skin: No rashes or easy bruising Endocrine: no increased thirst or abnormal weight change Allergic: no skin or latex allergy All other systems reviewed and normal PE: General: Well-nourished well-developed individual, no acute distress HEENT: Throat: Normal, tonsils normal, no erythema or exudate Neck: Supple, no meningeal signs, no lymphadenopathy Eyes::Pupils equal reactive and round, extraocular motion intact Chest: Nontender to palpation Cardiac: S1-S2 normal, regular rate and rhythm, no murmurs rubs or gallops Respiratory: Lungs clear to auscultation bilateral Abdomen: Soft, nondistended, normal bowel sounds, nontender to palpation diffusely Extremities: Warm, dry, no cyanosis, clubbing, or edema Skin: No rashes Neuro: Alert and oriented x3, nonfocal exam, grossly intact, normal gait Psych: Normal mood and affect Assessment and plan: This is a 24-year-old female who comes in complaining of feeling dehydrated. Patient is status post gastric sleeve on January 22 and has had multiple ED visits for dehydration as she is unable to take in enough liquids. Patient states she usually gets some fluids feels better and goes home. IV was placed patient will be given 2 L of normal saline and basic labs sent. 03/22/19 19:48 Past History - Past Medical History Allergies/Adverse Reactions: Allergies Allergy/AdvReac Type Severity Reaction Status Date / Time No Known Allergies Allergy Verified 03/22/19 19:02 Home Medications: Ambulatory Orders Albuterol Sulfate Inhaler - [Ventolin Hfa Inhaler -] 1 - 2 inh PO Q4H PRN Multivitamin [Multiple Vitamins] 1 each PO DAILY 03/22/19 Anemia: No Asthma: Yes Cancer: No Cardiac Disorders: No CVA: No COPD: No CHF: No Dementia: No Diabetes: No GI Disorders: No Disorders: No HTN: No Hypercholesterolemia: No Liver Disease: No Seizures: No Thyroid Disease: No - Surgical History Abdominal Surgery: Yes (GASTRIC SLEEVE 01/22/19) - Reproductive History Therapeutic (s) & number: No - Immunization History Immunization Up to Date: Yes - Psycho Social/Smoking Cessation Hx Smoking Status: No Smoking History: Never smoked Have you smoked in the past 12 months: No Number of Cigarettes Smoked Daily: 0 Information on smoking cessation initiated: No Hx Alcohol Use: No Drug/Substance Use Hx: No Substance Use Type: None Hx Substance Use Treatment: No Review of Systems - Review of Systems Able to Perform ROS?: Yes Comments:: 03/22/19 19:21 *Physical Exam - Vital Signs Last Vital Signs Temp Pulse Resp BP Pulse Ox 98.4 F 84 18 112/83 99 03/22/19 19:00 03/22/19 19:00 03/22/19 19:00 03/22/19 19:00 03/22/19 19:00 - Physical Exam Comments: 03/22/19 19:21 ED Treatment Course - LABORATORY CBC & Chemistry Diagram: 03/22/19 19:30 03/22/19 19:30 Discharge - Discharge Information Problems reviewed: Yes Clinical Impression/Diagnosis: Dehydration Condition: Stable Disposition: HOME - Admission No - Follow up/Referral Referrals: Liberty Harrell MD [Primary Care Provider] - - Patient Discharge Instructions Additional Instructions: Return to the emergency department immediately with ANY new, persistent or worsening symptoms. Continue any medications as previously prescribed by your physician. You should follow up with your primary doctor as soon as possible regarding today's emergency department visit. . Please make sure your doctor reviews the results of your emergency evaluation. Thank you for coming to the Emergency Department today for your care. It was a pleasure to see you today. Please note that your evaluation is INCOMPLETE until you follow-up with your doctor. - Post Discharge Activity
[2019-03-22 20:06] LABS: ALBUMIN 3.8 g/dl (3.4-5.0); BILIRUBIN,TOTAL 0.6 mg/dl (0.2-1); CALCIUM 9.1 mg/dl (8.5-10); CREATININE 0.4 mg/dl (0.55-1.3); TOT PROT 6.9 g/dl (6.4-8.2)
== END 2019-03-22 21:45 | disposition home or self-care (01) ==
LOC: FER 19:00
PROC: 3E0337Z Introduction of Electrolytic and Water Balance Substance into Peripheral Vein, Percutaneous Approach (ICD-10-PCS; principal; 2019-03-22)
DX: E86.0 Dehydration (principal); Z98.84 Bariatric surgery status
CPT/HCPCS: 36415; 80053; 85025; 99283-25; J7030

== ENCOUNTER 2020-08-12 16:44 | Emergency (ER) | payer OTHER ==
[2020-08-12 17:00] VITALS: BP 121/79; PULSE 84; TEMP 97.8; BMI 21.6
== END 2020-08-12 17:15 | disposition home or self-care (01) ==
LOC: JERFT 16:44
DX: H92.02 Otalgia, left ear (principal); R59.0 Localized enlarged lymph nodes
CPT/HCPCS: 99282-25

== ENCOUNTER 2021-05-24 14:59 | Emergency (ER) | payer OTHER ==
[2021-05-24 15:23] VITALS: BP 124/68; PULSE 83; TEMP 98.9; BMI 22.3
[2021-05-24] MEDS ORDERED: ACETAMINOPHEN 1000 MG/100 ML VIAL IVPB ONE (15:30)
[2021-05-24] MEDS ORDERED: ACETAMINOPHEN 325 MG TABLET (FP) PO ONE (15:34)
[2021-05-24] MEDS ORDERED: ACETAMINOPHEN 325 MG TABLET (FP) ONE (15:36)
[2021-05-24 16:15] LABS: ALBUMIN 4.3 g/dl (3.4-5.0); BILIRUBIN,TOTAL 0.4 mg/dl (0.2-1); CALCIUM 9.5 mg/dl (8.5-10); CREATININE 0.6 mg/dl (0.55-1.3); TOT PROT 7.7 g/dl (6.4-8.2)
[2021-05-24 16:52] LABS: BASO % 0.6 % (0-2.0); EOS % 1.2 % (0-4.5); HEMATOCRIT 39.1 % (32.4-45.2); HEMOGLOBIN 13.3 GM/dL (10.7-15.3); MCH 29.9 pg (25.7-33.7); MCHC 34.1 g/dl (32.0-36.0); MEAN CELL VOLUME 87.7 fl (80-96); MEAN PLT VOLUME 8.8 fl (7.5-11.1); MONO % 8.1 % (3.8-10.2); NEUT % 62.1 % (42.8-82.8); PLATELET COUNT 274 10^3/uL (134-434); RBC 4.46 M/mm3 (3.60-5.2); RDW 12.4 % (11.6-15.6); WHITE BLOOD COUNT 5.4 K/mm3 (4.0-10.0)
[2021-05-24] MEDS ORDERED: SODIUM CHLORIDE 1,000 ML IV ONE (17:31)
== END 2021-05-24 18:51 | disposition home or self-care (01) ==
LOC: FER 14:59
PROC: 3E0337Z Introduction of Electrolytic and Water Balance Substance into Peripheral Vein, Percutaneous Approach (ICD-10-PCS; principal; 2021-05-24)
DX: R51.9 Headache, unspecified (principal)
CPT/HCPCS: 36415; 70450-TC; 80053; 84703; 85025; 96360; 99285-25

== ENCOUNTER 2021-09-29 14:40 | Emergency (ER) | payer OTHER ==
[2021-09-29 14:56] VITALS: BP 108/76; PULSE 66; TEMP 98.7; BMI 22.6
[2021-09-29] MEDS ORDERED: ACETAMINOPHEN 500 MG TABLET (FP) PO ONE (15:17)
[2021-09-29] MEDS ORDERED: ACETAMINOPHEN 325 MG TABLET (FP) ONE (15:22)
[2021-09-29 15:42] LABS: HEMATOCRIT 35.9 % (32.4-45.2); HEMOGLOBIN 12.6 G/dL (10.7-15.3); MCH 30.3 pg (25.7-33.7); MEAN CELL VOLUME 86.6 fl (80-96); MEAN PLT VOLUME 8.6 fl (7.5-11.1); PLATELET COUNT 265.8 10^3/uL (134-434); RBC 4.15 10^6/uL (3.60-5.2); RDW 13.9 % (11.6-15.6); WHITE BLOOD COUNT 5.7 10^3/uL (4.0-10.8)
[2021-09-29 15:53] LABS: BILIRUBIN,TOTAL 0.6 mg/dl (0.2-1); CALCIUM 9.1 mg/dl (8.5-10); CREATININE 0.6 mg/dl (0.55-1.3); TOT PROT 7.2 g/dl (6.4-8.2)
== END 2021-09-29 16:46 | disposition home or self-care (01) ==
LOC: FER 14:40
DX: R07.9 Chest pain, unspecified (principal); R06.02 Shortness of breath
CPT/HCPCS: 36415; 71046-TC-FY; 80053; 84484; 84703; 85025; 93005; 99285-25